=== PATIENT | female | born 1955 | race Caucasian/White ===

== ENCOUNTER → 2021-01-05 10:17 | Outpatient (CLI) | payer MEDICARE, SELFPAY ==
--- NOTE | ~2021-01-05 | XR_ITS ---
XR knee LT 3V 01/05/2021 10:36 Indication: Left knee pain Procedure: 3 views left knee Comparison: No prior studies for comparison. Findings: Moderate tricompartment osteoarthritis. Moderate joint effusion. No acute fracture or traum atic malalignment. No significant soft tissue abnormality. No foreign bodies. Impression: 1: Moderate joint effusion. 2: Moderate osteoarthritis of the left knee. Reviewed, dictated and finalized at location A. Impression: 1: Moderate joint effusion. 2: Moderate osteoarthritis of the left knee.
== END ==
PROVIDERS: PCP Internal Medicine; Visit Provider Internal Medicine
DX: M17.12 Unilateral primary osteoarthritis, left knee (principal)
CPT/HCPCS: 73562

== ENCOUNTER → 2021-02-16 13:54 | Outpatient (CLI) | payer MEDICARE, SELFPAY ==
--- NOTE | ~2021-02-16 | MM_ITS ---
EXAMINATION: MM screening [facility] BI w alexia HISTORY: Screening TECHNIQUE: Craniocaudal and mediolateral oblique 3-D tomosynthesis images were obtained and synthetic 2-D images were generated. CAD analysis was submitted and interpreted. COMPARISON: No prior mammogram is available for comparison at this institution. BREAST PARENCHYMAL COMPOSITION: There are scattered areas of fibroglandular density. FINDINGS: There is asymmetry of the right breast, likely related to prior lumpectomy and radiation th erapy. There are no suspicious masses, calcifications or architectural distortion in the left breast to suggest malignancy. IMPRESSION: 1. Right breast asymmetry in the upper outer quadrant, likely postsurgical. 2. Recommend comparison to previous outside mammograms. BI-RADS Category 0: Incomplete: Needs additional imaging evaluation. Reviewed, dictated and finalized at location A.
== END ==
PROVIDERS: PCP Internal Medicine; Visit Provider Internal Medicine
DX: Z12.31 Encounter for screening mammogram for malignant neoplasm of breast (principal); R92.8 Other abnormal and inconclusive findings on diagnostic imaging of breast
CPT/HCPCS: 77063; 77067

== ENCOUNTER → 2021-08-31 11:59 | Outpatient (CLI) | payer MEDICARE, SELFPAY ==
--- NOTE | ~2021-08-31 | DEXA_ITS ---
Bone Density Report Name: WENDY HANSEN Age: 66 Sex: Female Ethnicity: White Date of : 1955 Indication: postmenopausal; screening for osteoporosis; height loss; Referring Provider: Galo, Luna Study: Bone densitometry was performed. Exam Date: August 31, 2021 Accession number: [id number] Bone Density: Region BMD T-score Z-score Classification AP Spine (L1-L4) 0.824 -2.0 0.0 Osteopenia Femoral Neck (Left) 0.565 -2.6 -0.9 Osteoporosis Total Hip (Left) 0.696 -2.0 -0.6 Osteopenia Femoral Neck (Right) 0.628 -2.0 -0.3 Osteopenia Total Hip (Right) 0.764 -1.5 0.0 Osteopenia Total Hip Mean 0.730 -1.8 -0.3 Osteopenia World Health Organization criteria for BMD impression classify patients as: Normal (T-score at or above -1.0), Osteopenia (T-score between -1.0 and -2.5), or Osteoporosis (T-score at or below -2.5). 10-year Fracture Risk: FRAX not reported because: Some T-score for Spine Total or Hip Total or Femoral Neck at or below -2.5 Clinical Information Provided by Patient: Has used the following medications: Vitamin D, Calcium Patient maximum height was 62 Menopause Age: 51 No regular weight bearing exercise Drinks caffeinated beverages Onset of menses at age 12 Number of children 2 Impression: The patient has osteoporosis, based on the Left Femoral Neck T-score. Discussion: INCREASED RISK OF FRACTURE. BONE DENSITY IS UNDESIRABLY LOW AT ONE OR MORE SKELETAL SITES, CONSISTENT WITH POSTMENOPAUSAL OSTEOPOROSIS. This patient's lowest T-score meets the World Health Organization's (WHO) criteria for osteoporosis at one or more sites (T-score -2.5 or below). In untreated patients, the risk of osteoporotic fracture increases approximately two-fold for each 1.0 SD decrease in T-score. Low bone density is not the only risk factor for fracture; also consider factors such as patient's age, frailty or poor health, risk of falling, risk of injury, previous osteoporotic fracture, family history of osteoporosis, cigarette smoking, low body weight, etc. Not everyone with low bone mineral density has osteoporosis; osteomalacia and other metabolic bone disorders should also be considered. Patients who have osteoporosis should be evaluated for specific diseases and conditions (secondary causes) that may cause or contribute to bone loss. The [place] Association of Clinical Endocrinologists (AACE) and National Osteoporosis Foundation (NOF) recommend pharmacologic intervention for all postmenopausal women whose T-score is in this range. The patient should follow a healthful lifestyle (good nutrition with adequate calcium and vitamin D, and appropriate weight-bearing exercise). Follow-Up: Consider a repeat BMD and Vertebral Fracture Assessment (VFA) exam in 2 years or sooner if medically necessary, to reassess this patient's
== END ==
PROVIDERS: PCP Internal Medicine; Visit Provider Internal Medicine
DX: M81.0 Age-related osteoporosis without current pathological fracture (principal); M85.88 Other specified disorders of bone density and structure, other site; M85.851 Other specified disorders of bone density and structure, right thigh; M85.852 Other specified disorders of bone density and structure, left thigh
CPT/HCPCS: 77080

== ENCOUNTER → 2021-09-08 10:53 | Outpatient (CLI) | payer MEDICARE, SELFPAY ==
--- NOTE | ~2021-09-08 | XR_ITS ---
XR knee LT 3V 09/08/2021 11:15 Indication: Arthritis. Left knee pain. Procedure: 3 views left knee Comparison: 01/05/2021 Findings: There is a large joint effusion. There is moderate tricompartment osteoarthritis. Osteopeni a. No acute fracture or traumatic malalignment. Impression: 1: Moderate tricompartment osteoarthritis of the left knee. 2: Large joint effusion. Reviewed, dictated and finalized at location A. Impression: 1: Moderate tricompartment osteoarthritis of the left knee. 2: Large joint effusion.
== END ==
PROVIDERS: PCP Internal Medicine; Visit Provider Internal Medicine
DX: M17.12 Unilateral primary osteoarthritis, left knee (principal); M25.462 Effusion, left knee
CPT/HCPCS: 73562

== ENCOUNTER → 2022-03-14 13:11 | Outpatient (CLI) | payer MEDICARE, SELFPAY ==
--- NOTE | ~2022-03-14 | MM_ITS ---
EXAMINATION: MM screening dionne BI w alexia HISTORY: Screening mammogram, history of right breast cancer TECHNIQUE: Craniocaudal and mediolateral oblique 3-D tomosynthesis images were obtained and synthetic 2-D images were generated. CAD analysis was submitted and interpreted. COMPARISON: 02/16/2021, 05/31/2019, 05/03/2018 BREAST PARENCHYMAL COMPOSITION: There are scattered areas of fibroglandular density. FINDINGS: There is stable architectural distortion in the upper outer quadrant of the right breast at the site of prior lumpectomy. No suspicious mass, calcification, or architectural distortion are mayela ntified in either breast to suggest malignancy. There has been no suspicious interval change. IMPRESSION: 1. No mammographic evidence of malignancy. 2. Recommend routine screening mammography in one year. BI-RADS Category 2: Benign finding(s). Reviewed, dictated and finalized at location A. CARE ADMINISTRATOR
== END ==
PROVIDERS: PCP Internal Medicine; Visit Provider Internal Medicine
DX: Z12.31 Encounter for screening mammogram for malignant neoplasm of breast (principal)
CPT/HCPCS: 77063; 77067

== ENCOUNTER 2024-06-10 13:44 | Outpatient (CLI) | payer MEDICARE, SELFPAY ==
--- NOTE | ~2024-06-10 | MM_ITS ---
EXAMINATION: MM screening [facility] BI w alexia HISTORY: Screening mammogram TECHNIQUE: Craniocaudal and mediolateral oblique 3-D tomosynthesis images were obtained and synthetic 2-D images were generated. CAD analysis was submitted and interpreted. COMPARISON: 03/14/2022, 02/16/2021, 05/31/2019 BREAST PARENCHYMAL COMPOSITION:Dense: The breasts are heterogeneously dense, which may obscure small masses. FINDINGS: No suspicious mass, calcification, or architectural distortion are identified in either supriya ast to suggest malignancy. There has been no suspicious interval change. IMPRESSION: No mammographic evidence of malignancy. Recommend routine screening mammography in one year. BI-RADS Category 1: Negative Reviewed, dictated and finalized at location . RIBUTION WAREHOUSE MANAGER
== END 2024-06-10 13:45 | disposition home or self-care (01) ==
PROVIDERS: PCP Internal Medicine; Visit Provider Internal Medicine
DX: Z12.31 Encounter for screening mammogram for malignant neoplasm of breast (principal)
CPT/HCPCS: 77063; 77067

== ENCOUNTER 2025-04-13 06:18 | Emergency (ER) | payer MEDICARE, SELFPAY ==
--- NOTE | ~2025-04-13 | XR_ITS ---
Examination: XR ankle LT min 3V Clinical History: pain Comparison: None Technique: 3 views left ankle Findings/impression: 1. Nondisplaced fracture lateral malleolus just below level of ankle mortise. 2. Medial malleolus and ankle mortise intact. Reviewed, dictated and finalized at location R. OL TEACHER
[2025-04-13 06:18] VITALS: BP 144/84; PULSE 80; RESP 18; TEMP 36.7; O2SAT 100
[2025-04-13 06:44] VITALS: BP 128/84; PULSE 94; RESP 16; O2SAT 97
--- NOTE | 2025-04-13 06:54 | PC.NURSE ---
ice pack applied to pt ankle
[2025-04-13 07:14] VITALS: BP 137/75; PULSE 69; RESP 17; O2SAT 96
--- NOTE | 2025-04-13 07:32 | ED.GENADULT ---
HPI - General Adult General Chief complaint: Extremity Injury, Lower Stated complaint: L ankle injury Time Seen by Provider: 04/13/25 06:51 History of Present Illness HPI narrative: 69-year-old female presents to the emergency department for evaluation for left ankle pain. Patient reports she was walking down the steps and missed the last step and did fall to the ground. Patient denies striking head denies any loss of consciousness. Patient reports she was able to bear weight on the ankle immediately after fall. Patient denies any other pain or injury. Patient does have pain and swelling of the left lateral ankle. Related Data Home Medications ?Medication ?Instructions ?Recorded ?Confirmed ?Last Taken ?Type gabapentin 300 mg capsule 300 mg PO TID 10/07/21 10/07/21 Unknown History lisinopril 10 mg tablet 10 mg PO DAILY 10/07/21 10/07/21 Unknown History sertraline 50 mg tablet 50 mg PO DAILY 10/07/21 10/07/21 Unknown History tramadol 50 mg tablet 50 mg PO Q6H PRN 10/07/21 10/07/21 Unknown History Allergies Allergy/AdvReac Type Severity Reaction Status Date / Time Penicillins Allergy Rash Verified 04/13/25 06:23 Sulfa (Sulfonamide Allergy Rash Verified 04/13/25 06:23 Antibiotics) Review of Systems Review of Systems: All systems reviewed & are unremarkable except as noted in HPI and below PMFSH Social History Social History (Updated 10/07/21 @ 11:02 by Christine Hernandez MA) Smoking status: Never smoker Alcohol intake: current Substance use: never Occupation/Education: retired Gender identity (if verbalized by the patient): Female Exam Narrative: APPEARANCE: Well appearing, no pain, no distress, well-nourished. HEAD: normocephalic, atraumatic. EYES: PERRLA/EOMI, conjunctivae clear. NOSE: Normal no drainage NECK: Supple. No adenopathy, no masses. RESPIRATORY: Airway patent, respirations nonlabored. Clear to auscultation bilaterally, no rales, rhonchi, wheezing. CARDIOVASCULAR: Regular rate and rhythm without murmurs rubs or gallops. ABDOMINAL: Soft, nontender, nondistended, normal bowel sounds MUSCULOSKELETAL: Left lateral ankle swelling. NEURO: Alert. Cranial nerves II through XII intact. Grossly intact SKIN: Warm, dry. Normal Color Course Vital Signs Vital signs: Vital Signs Temperature 98.0 F 04/13/25 06:18 Pulse Rate 80 04/13/25 06:18 Respiratory Rate 18 04/13/25 06:18 Blood Pressure 144/84 H 04/13/25 06:18 Pulse Oximetry 100 04/13/25 06:18 Oxygen Delivery Room Air 04/13/25 06:18 Temperature 98.0 F 04/13/25 06:18 Pulse Rate 78 04/13/25 08:50 Respiratory Rate 15 04/13/25 08:50 Blood Pressure 131/97 H 04/13/25 08:50 Pulse Oximetry 96 04/13/25 08:50 Oxygen Delivery Room Air 04/13/25 06:18 MDM MDM Narrative Medical decision making narrative: 69-year-old female presents emergency department for evaluation for left ankle pain. X-ray does show a fracture of the distal fibula fracture. Patient is unable to utilize crutches but patient does have access to a walker and to a knee current. Patient will have close follow-up with Orthopedics. All questions concerns were addressed and patient was updated results of her workup. Differential Diagnosis Differential Diagnosis: Fibula fracture, tibia fracture, ankle sprain Imaging Data My impression: Ankle x-ray: Distal fibular fracture Discharge Plan Discharge Clinical Impression: Ankle fracture, lateral malleolus, closed Patient Disposition: Home Condition: Stable Instructions: Antibiotic Form, Ankle Fracture (DC), Splint Care (ED) Additional Instructions: Splint care as directed. Nonweightbearing on the affected ankle. Close follow-up with Orthopedics. If you require the oxycodone for pain control then hold on your tramadol. Patient Language: Monegasque Prescriptions: New oxycodone-acetaminophen 5-325 mg tablet 1 tablet PO Q6H PRN (Reason: pain) Qty: 14 0RF No Action gabapentin 300 mg capsule 300 mg PO TID Patient Comments: pt states she takes the medication 5x/day lisinopril 10 mg tablet 10 mg PO DAILY tramadol 50 mg tablet 50 mg PO Q6H PRN sertraline 50 mg tablet 50 mg PO DAILY Follow-up/Referrals: Galo,MD Luna [Primary Care Provider, Unknown] Miguel Smith MD [Physician, Orthopedics]
--- OUTSIDE RECORDS SUMMARY | 2025-04-13 07:36 | XMS_ITS | Encounter Summary ---
Author Organization [facility] - [facility] System Address [facility] [place] [address] Care Team Providers Care Spinning Machine Tender Name Role Phone Luna Rosenthal MD Primary Care Provider [phone] Mendy Aguilar DPM Unavailable [phone] Trey Cross MD Unavailable [phone] Encounter Details Date Type Department Care Team (Latest Contact Info) Description 09/19/2024 [email or web address] Message Enc [facility] Medical [facility] Multispecialty Care - [place] [address] [facility] [address] [place] [address] Luna Rosenthal MD [address] [facility] [address] [place] [address] After knee replacement recovery Social History Tobacco Use Types Packs/Day Years Used Date Smoking Tobacco: Never Passive Smoke Exposure: Past Smokeless Tobacco: Never Comments:counseled by Dr Cleo sanchez Alcohol Use Standard Drinks/Week Comments Yes 3.3 (1 standard drink = 0.6 oz p ure alcohol) AUDIT-C Answer Date Recorded Q1: How often do you have a drink containing alc ohol? 2-3 times a week 05/01/2024 Q2: How many drinks containi ng alcohol do you have on a typical day when you are drinking? 1 or 2 05/01/2024 Q3: How often do you have si x or more drinks on one occasion? Never 05/01/2024 PHQ-2 Answer Date Recorded Patient Health Questionnaire-2 Score 0 07/02/2024 Comments No Sex and Gender Information Value Date Recorded Sex Assigned at Female 07/02/2024 9:02 AM CDT Legal Sex Female 12:05 PM CDT Gender Identity Female 04/27/2021 1:24 PM PHARMACOEPIDEMIOLOGIST Sexual Orientation Straight 04/27/2021 1: 24 PM PHARMACOEPIDEMIOLOGIST documented as of this encounter Plan of Treatment Upcoming Encounters Date Type Department Care Team (Late st Contact Info) Description 05/14/2025 9:30 AM PHARMACOEPIDEMIOLOGIST Office Visit [facility] Medical Group Multispecialty [facility] [place] [address] [address] [place] [address] Luna Rosenthal MD [address] [place] [address] documented as of this encounter Visit Diagnoses Not on filedocumented in this encounter Additional Health Concerns Assessment Noted Time PHQ-9 Depression Total Score: 0 07/03/19 25 10:13 AM CDT documented as of this encounter Care Teams Spinning Machine Tender Relationship Specialty Start Date End Date Luna Rosenthal MD [address] [place] [address] PCP - General INTERNAL MEDICINE 11/11/20 Mendy Aguilar DPM [address] [place] [id number] Surgeon Legal Officer - Foot & Ankle Surgery 04/06/22 Trey Cross MD [address] [place] [address] [address] [place] [address] ORTHOPAEDICS 05/01/24 documented as of this encounter
--- OUTSIDE RECORDS SUMMARY | 2025-04-13 07:36 | XMS_ITS | Encounter Summary ---
Author Organization [facility] - [facility] System Address [facility] [place] [address] Care Team Providers Care Senior Product Analyst Name Role Phone Luna Rosenthal MD Primary Care Provider [phone] Mendy Aguilar DPM Unavailable [phone] Trey Cross MD Unavailable [phone] Encounter Details Date Type Department Care Team (Latest Contact Info) Description 03/10/2025 Results Follow-Up [facility] Medical [facility] Mult[facility]pecialty Care - [place] [address] [address] [place] [address] [place] [address] [place] [address] [address] [place] [address] COMPREHENSIVE METABOLIC PANEL, CBC W/DIFF Social History Tobacco Use Types Packs/Day Years [...] Answer Date Recorded Patient Health Questionnaire-2 Score 1 10/23/2024 Comments No Sex and Gender Information Value Date Recorded Sex Assigned at Female 07/02/2024 9:02 AM CDT Legal Sex Female 12:05 PM CDT Gender Identity Female 04/27/2021 1:24 PM TENANT SELECTOR Sexual Orientation Straight 04/27/2021 1: 24 PM TENANT SELECTOR documented as of this encounter Plan of Treatment Upcoming Encounters Date Type Department Care Team (Late st Contact Info) Description 05/14/2025 9:30 AM TENANT SELECTOR Office Visit [facility] Medical Group Multispecialty [facility] [place] [address] [address] [place] [address] Luna Rosenthal MD [address] [place] [address] documented as of this encounter Visit Diagnoses Not on filedocumented in this encounter Additional Health Concerns Assessment Noted Time PHQ-9 Depression Total Score: 2 10/24/19 10:25 AM CDT documented as of this encounter Care Teams Senior Product Analyst Relationship Specialty Start Date End Date Luna Rosenthal MD [address] [place] [address] PCP - General INTERNAL MEDICINE 11/11/20 Mendy Aguilar DPM [address] [place] [address] Surgeon Induction Heating Equipment Setter - Foot & Ankle Surgery 04/06/22 Trey Cross MD [address] [place] [address] [address] [place] [address] ORTHOPAEDICS 05/01/24 documented as of this encounter
--- OUTSIDE RECORDS SUMMARY | 2025-04-13 07:36 | XMS_ITS | Clinical Summary ---
Author Organization [facility] Address [address] [facility] [place] [address] Care Team Providers Care Gas Line Installer Supervisor Name Role Phone Luna Rosenthal MD Primary Care Provider [phone] Source Comments [facility],non-owned Affiliates and Associated Physician Practices is amultiple site organization consisting of ambulatory clinics and hospital sitesin [place], [place], [place] and [place]. This disclosure is being madepursuant to the Care Everywhere program and may not contain all information available regarding this patient. Last updated 18.[facility] Allergies Active Allergy Reactions Criticality Noted Date Comments Penicillins Urticaria,Rash,Unknown Medium 08/04/2015 Can't remember severity Sulfa Antibiotics Rash,Unknown High 08/04/2015 Medications * Be aware that medications may not be up to date on this document. Alwaysverify current medications with the patient. atorvastatin (Lipitor) 20 MG tablet Take 1 (one) tablet by mouth once daily 3 Active gabapentin (Neurontin) 300 MG capsule Take one capsule in the morning and one capsule in the afternoon and two capsules at bedtime. 3 Active lisinopril (Prinivil; Zestril) 10 MG tablet Take 1 (one) tablet by mouth once daily 3 Active traMADol (Ultram) 50 MG tablet Indications: Chronic Pain TAKE 1 TABLET BY MOUTH EVERY MORNING, 1 TABLET EVERY AFTERNOON, AND 2 TABLETS EVERY EVENING FOR CHRONIC PAIN 3 Active Active Problems Problem Noted Date Diagnosed Date Primary osteoarthritis of left knee 04/22/2024 Social History Tobacco Use Types Packs/Day Years Used Date Smoking Tobacco: Never Smokeless Tobacco: Never Tobacco Cessation:Counseling Given: Not Answered PHQ-2 Answer Date Recorded Patient Health Questionnaire-2 Score 0 03/22/2024 Comments Unknown Sex and Gender Information Value Date Recorded Sex Assigned at Not on file Legal Sex Female 9:31 AM CDT Gender Identity Not on file Sexual Orientation Not on file Last Filed Vital Signs Vital Sign Reading Time Taken Comments Blood Pressure - - Pulse - - Temperature - - Respiratory Rate - - Oxygen Saturation - - Inhaled Oxygen Concentration - - Weight 61.2 kg (135 lb) 03/22/2024 8:29 AM COMPENSATION DIRECTOR Height 154.9 cm (5' 1) 03/22/2024 8:29 AM COMPENSATION DIRECTOR Body Mass Index 25.51 03/22/2024 8:29 AM COMPENSATION DIRECTOR Plan of Treatment Health Maintenance Due Date Last Done Comments COLOGUARD (AGES 45-75) - COLON CA SCREENING 1955 COLON MONITORING 1955 COLONOSCOPY - COLON CA SCREENING 1955 CT COLONOGRAPHY - COLON CA SCREENING 1955 Colorectal Cancer Screening 1955 FIT - COLON CA SCREENING 1955 FLEX SIG - COLON CA SCREENING 1955 DTAP/TDAP/TD VACCINES (1 - Tdap) 1972 PNEUMOCOCCAL VACCINE 50+ (1 of 1 - PCV) 2003 ZOSTER VACCINE (1 of 2) 2003 MAMMOGRAM 03/14/2024 03/14/2022, 05/2020, 02/16/2021, Additional history exists SCREENING FOR DIABETES 03/22/2024 DEPRESSION SCREENING 04/17/2024 03/22/2024 MEDICARE AWV CALENDAR YEAR 2024 COVID-19 VACCINE ( season) 2024 03/16/2021, 07/13/2020, 06/15/2020 INFLUENZA VACCINE (#1) 2024 , 01/22/2019, 04/17/2015 Respiratory Syncytial Virus (RSV) Vaccine Pt: or over 60 yrs (1 - 1-dose 75+ series) 2028 HEPATITIS C SCREENING Completed 11/11/2020 BONE DENSITY TESTING Completed 08/31/2021, 05/31/19 20 HEPATITIS B VACCINE Aged Out No longe r eligible based on patient's age to complete this topic HIB VACCINE Aged Out No longer eligi ble based on patient's age to complete this topic HPV VACCINE Aged Out No longer eligi ble based on patient's age to complete this topic MENINGOCOCCAL (Group B) VACCINE SHARED DECISION-MAKING Aged Out No longer eligible based on patient's age to complete this topic MENINGOCOCCAL GROUPS A/C/Y/W VACCINE Aged Out No longer eligible based on patient's age to complete this topic Insurance [facility] MANAGED MEDICARE ADV Care Teams Gas Line Installer Supervisor Relationship Specialty Start Date End Date Luna Rosenthal MD [address] [facility] [address] [place] [address] PCP - General Internal Medicine 03/22/24
--- OUTSIDE RECORDS SUMMARY | 2025-04-13 07:36 | XMS_ITS | Encounter Summary ---
Author Organization [facility] - [facility] Address [facility] [place] [address] Care Team Providers Care Csm Consultant Name Role Phone Luna Rosenthal MD Primary Care Provider [phone] Mendy Aguilar DPM Unavailable [phone] Trey Cross MD Unavailable [phone] Encounter Details Date Type Department Care Team (Late st Contact Info) Description 02/06/2025 [employer] Message Enc [facility] Medical Group Multispecialty Care - [place] [address] [facility] [address] [place] [address] Luna Rosenthal MD [address] [facility] [address] [place] [address] Meds Social History Tobacco Use Types Packs/Day Years [...] CDT Gender Identity Female 04/27/2021 1:24 PM SENIOR ENGINEERING MANAGER Sexual Orientation Straight 04/27/2021 1: 24 PM SENIOR ENGINEERING MANAGER documented as of this encounter Plan of Treatment Upcoming Encounters Date Type Department Care Team (Late st Contact Info) Description 05/14/2025 9:30 AM SENIOR ENGINEERING MANAGER Office Visit [facility] Medical Group Multispecialty [facility] [place] [address] [address] [place] [address] Luna Rosenthal MD [address] [place] [address] documented as of this encounter Visit Diagnoses Not on filedocumented in this encounter Additional Health Concerns Assessment Noted Time PHQ-9 Depression Total Score: 2 10/24/19 25 10:25 AM CDT documented as of this encounter Care Teams Csm Consultant Relationship Specialty Start Date End Date Luna Rosenthal MD [address] [place] [address] PCP - General INTERNAL MEDICINE 11/11/20 Mendy Aguilar DPM [address] [place] [address] Surgeon Butter Production Supervisor - Foot & Ankle Surgery 04/06/22 Trey Cross MD [address] [place] [address] [address] [place] [address] ORTHOPAEDICS 05/01/24 documented as of this encounter
--- OUTSIDE RECORDS SUMMARY | 2025-04-13 07:36 | XMS_ITS | Encounter Summary ---
Author Organization [facility] Address [facility] [place] [address] Care Team Providers Care Dot Compliance Manager Name Role Phone Luna Rosenthal MD Primary Care Provider [phone] Prince Tapia MD Unavailable [phone] Mendy Aguilar DPM Unavailable [phone] Trey Cross MD Unavailable [phone] Encounter Details Date Type Department Care Team (Late st Contact Info) Description 12/03/[address] [facility] Multispecialty Care - [address] [place] [address] [facility], [facility] Provider Nurse Visit Social History Tobacco Use Types Packs/Day Years Used Date Smoking Tobacco: Never Cigarettes Smokeless Tobacco: Never Comments:counseled by Dr Cleo sanchez Alcohol Use Standard Drinks/Week Comments Yes 3.3 (1 standard drink = 0.6 oz p ure alcohol) a few glasses of wine a week PHQ-2 Answer Date Recorded PHQ-2 Score - If the patient scores above 3, please move on to questions 3-9 0 11/08/2021 Comments No Sex and Gender Information Value Date Recorded Sex Assigned at Female 07/02/2024 9:02 AM CDT Legal Sex Female 12:05 PM CDT Gender Identity Female 04/27/2021 1:24 PM NEW AUTOS DELIVERY DRIVER Sexual Orientation Straight 04/27/2021 1: 24 PM NEW AUTOS DELIVERY DRIVER COVID-19 Exposure Response Date Recorded In the last 10 days, have yo u been in contact with someone who was confirmed or suspected to have Coronavirus/COVID-19? No / Unsure 11/16/2021 7:43 AM CDT documented as of this encounter Plan of Treatment Upcoming Encounters Date Type Department Care Team (Late st Contact Info) Description 05/14/2025 9:30 AM NEW AUTOS DELIVERY DRIVER Office Visit [facility] Multispecialty Care - [place] [address] [address] [place] [address] Luna Rosenthal MD [address] [place] [address] documented as of this encounter Visit Diagnoses Not on filedocumented in this encounter Additional Health Concerns Infection Onset Date Last Indicated Resolved Time COVID-19 Rule Out 2022 2022 2022 2:22 PM NEW AUTOS DELIVERY DRIVER COVID-19 Rule Out 2022 2022 04/21/2022 1:49 PM NEW AUTOS DELIVERY DRIVER Assessment Noted Time PHQ-9 Depression Total Score: 9 06/23/19 22 9:17 AM NEW AUTOS DELIVERY DRIVER documented as of this encounter Care Teams Dot Compliance Manager Relationship Specialty Start Date End Date Luna Rosenthal MD [address] [place] [address] PCP - General INTERNAL MEDICINE 11/11/20 Prince Tapia MD [address] [place] [address] ORTHOPAEDIC SURGERY 12/30/20 04/05/22 Mendy Aguilar DPM [address] [place] [address] Surgeon Culinary Art Teacher - Foot & Ankle Surgery 04/06/22 Trey Cross MD [address] [place] [address] [address] [place] [address] ORTHOPAEDICS 05/01/24 documented as of this encounter
--- OUTSIDE RECORDS SUMMARY | 2025-04-13 07:36 | XMS_ITS | Clinical Summary ---
Author Organization [facility] Address [address] [place] [address] Care Team Providers Care Steam Roller Operator Name Role Phone Luna Rosenthal MD Primary Care Provider Mendy Aguilar DPM Unavailable [phone] Trey Cross MD Unavailable [phone] Allergies Active Allergy Reactions Criticality Noted Date Comments Penicillins Hives,Rash,Unknown Low 08/04/2015 Can't remember severity Sulfa Antibiotics Rash,Unknown High 08/04/2015 Sulfacetamide Itching 09/05/2020 Medications * This document contains information received from the source organization and may not represent a complete record from that organization. naloxone (NARCAN) 4 MG/0.1ML nasal sprayIndications: Opioid use 1 spray by Nasal route as needed for Opioid reversal. 2 each 5 023 Active Multiple Vitamin (MULTIVITAMINS OR) Take 1 tablet by mouth daily. [place] Bone Strength multivitamin Active sertraline (ZOLOFT) 25 MG tabletIndications :Moderate episode of recurrent major depressive disorder (CMS/HCC),General ized anxiety disorder Take 1 tablet (25 mg total) by mouth nightly at bedtime. 90 tablet 1 025 Active atorvastatin (LIPITOR) 20 MG tabletIndications :Mixed hyperlipidemia Take 1 tablet (20 mg total) by mouth nightly at bedtime. 90 tablet 1 025 Active lisinopril (PRINIVIL) 10 MG tabletIndications :Essential hypertension, benign Take 1 tablet (10 mg total) by mouth daily. 90 tablet 1 025 Active gabapentin (NEURONTIN) 300 MG capsuleIndication s:Idiopathic progressive polyneuropathy TAKE 1 CAPSULE BY MOUTH EVERY MORNING, TAKE 1 CAPSULE EVERY AFTERNOON, AND 2 CAPSULES EVERY NIGHT AT BEDTIME. 360 capsule 1 025 Active traMADol (ULTRAM) 50 MG tabletIndications :Chronic Pain Indications: Chronic Pain TAKE 1 TABLET BY MOUTH EVERY MORNING, 1 TABLET EVERY AFTERNOON, AND 2 TABLETS EVERY EVENING FOR CHRONIC PAIN 120 tablet 025 Active ALPRAZolam (XANAX) 0.25 MG tabletIndications :Anxiety TAKE 1 TABLET(0.25 MG) BY MOUTH EVERY NIGHT NEEDED FOR SLEEP 30 tablet 025 Active ALPRAZolam (XANAX) 0.25 MG tabletIndications :Anxiety TAKE 1 TABLET(0.25 MG) BY MOUTH EVERY NIGHT NEEDED FOR SLEEP 30 tablet 025 2024 Discontinued Active Problems Problem Noted Date Diagnosed Date Mixed stress and urge urinary incontinence 03/10 Aortic calcification 10/23/2024 Moderate episode of recurrent major depressive d isorder 06/22/2021 Overview (11/08/2021): On sertraline and controlled Anxiety 05/10/2021 Mixed hyperlipidemia 05/10/2021 Essential hypertension, benign 09/05/2020 Overview (11/11/2020): Lisinopril 10 mg daily Denies cough Last Assessment & Plan: Well-controlled on lisinopril 10 mg daily; continue Lisinopril 10 mg daily Denies cough Last Assessment & Plan: Well-controlled on lisinopril 10 mg daily; continue History of breast cancer 09/05/2020 Overview (11/11/2020): 2000 right lumpectomy and XRT followed by 5 years of tamoxifen Last Assessment & Plan: Patient is 19 years from her original diagnosis; VALENTE; next mammogram due May 2020 2000 right lumpectomy and XRT followed by 5 years of tamoxifen Last Assessment & Plan: Patient is 19 years from her original diagnosis; VALENTE; next mammogram due May 2020 Vitamin D deficiency 06/06/2019 Overview (11/11/2020): Ergocalciferol 94437 units weekky x 12 for VitD = 17.4 OTC vit d3 2000 units daily Calcium 1200 mg daily Lab Results Component Value Date VITD 42.9 09/13/2019 Last Assessment & Plan: Vitamin D has been normal on daily supplementation; Check current status with labs, continue medication for now Age-related osteoporosis wit hout current pathological fracture 06/05/2019 Overview (11/11/2020): Dexa 05/31/19- LS -2.1, left fem neck -2.5 06/05/19-Discussed treatment, patient wants to think about options, Vit D ordered Last Assessment & Plan: Currently untreated, patient has been recommended to start pharmacologic therapy Next DEXA due May 2021 Stress incontinence, female 05/02/2017 Primary osteoarthritis of left knee 06/07/2016 Overview (11/11/2020): Getting injections with Dr Mack Small fiber neuropathy 10/12/2015 Overview (11/11/2020): Diagnosed Apr 2006 at [place] through sweat test Has been well controlled on gabapentin and tramadol Last Assessment & Plan: Diagnosed Apr 2006 at [place] through sweat test Has been well controlled on gabapentin and tramadol; continue Idiopathic progressive polyneuropathy 04/29/2013 Resolved Problems Problem Noted Date Diagnosed Date Resolved Date Hypomagnesemia 11/11/2020 11/11/2020 Overview (11/11/2020): Diagnosed through blood work per patient Taking 250 mg daily Last Mg: Magnesium (mg/dL):2.0 (01/10/2019) Last Assessment & Plan: Check current status with labs, continue medication for now Pure hypercholesterolemia 11/11/2020 Overview (11/11/2020): Not on medication-low ASCVD risk Diet and exercise Last Cholesterol: Total Cholesterol (mg/dL):239* (01/10/2019); LDL Cholesterol (mg/dL):149* (01/10/2019); HDL Cholesterol (mg/dL):75 (01/10/2019); Triglycerides (mg/dL):75 (01/10/2019); Non-HDL Cholesterol (mg/dL):164* (01/10/2019) 2019: 10 yr ASCVD risk 7.0% Last Assessment & Plan: Not on medication-low ASCVD risk Vitamin B12 deficiency 11/11/202011/11 Overview (11/11/2020): Diagnosed through blood work, per patient Taking daily supplementation Lab Results Component Value Date [id number] 01/10/2019 Last Assessment & Plan: Recently had a telehealth visit with Dr. Jah Barnett regarding her B12 deficiency and he ordered blood work-up. Will check B12 level with lab today GERD (gastroesophageal reflux disease) 12/29/2015 11/11/2020 Mixed hyperlipidemia 12/29/201511/11/ 021 Anxiety 10/12/2015 11/11/2020 Overview (11/11/2020): With occasional panic during day Also can wake up with lots of thoughts Takes alprazolam 2-3 times per week with good results Last Assessment & Plan: Doing well with taking alprazolam 2-3 times a week as needed without tolerance; continue Encounters Date Type Department Care Team Description 03/20/2025 Vestmarkhart Message Enc [place] [address] [facility] [address] [place] [address] Luna Rosenthal MD Flu and Covid 03/11/2025 Telephone [facility] - [address], [address] [place] [address] Shahid Kim MD Referral 03/10/2025 10:20 AM TESTER OPERATOR Office Visit [place] [address] [place] [address] [address] [place] [address] Luna Rosenthal MD Follow Up (Chronic medical issues); Anxiety; Depression; Hypertension; Osteoporosis (H/o); Breast Cancer (H/o); Hyperlipidemia; Arthritis 03/10/2025 Results Follow-Up [place] [address] [place] [address] [address] [place] [address] Luna Rosenthal MD COMPREHENSIVE METABOLIC PANEL, CBC W/DIFF 03/10/2025 Travel 02/06/2025 Orders Only [place] [address] [facility] [address] [place] [address] Luna Rosenthal MD 02/06/2025 [facility] Message Enc [place] [address] [facility] [address] [place] [address] Luna Rosenthal MD Meds 01/21/2025 4:00 PM CDT Office Visit [place] [address] [place] [address] [address] [place] [address] Luna Rosenthal MD Diarrhea (Blood in stool. Happened Monday night ) 01/21/2025 Travel 01/20/2025 MyChart Message Enc [facility] Medical Group Multispecialty Care - [place] [address] [place] [address] Luna Rosenthal MD tele appointment from Last 3 Months Immunizations Immunization Administration Dates Next Due Fluad influenza vaccine, Donnie drivalent (aIIV4), Inactivated, adjuvanted, preservative free, 0.5 mL,IM use 01/22/2019 Fluzone High Dose - >Age 65 (Prefilled Syringe) 05/03/2023,01/17/2022,02/11/2021 Influenza (Generic) 01/22/2019,04/17/2015 Influenza Adult (Generic) 01/29/2020,04/17/2015 MODERNA COVID-19 (12+) MRNA, LNP-S, PF, 100 MCG/ 0.5 ML DOSE 07/13/2020,06/15/2020 MODERNA COVID-19 (CALL MANAGER PAM ALEA), MRNA, LNP-S, PF, 50 MCG/ 0.25 ML DOSE 03/16/2021 Pneumococcal (Pneumovax 23) 03/26/2020, 0 Pneumococcal (Prevnar 13) 01/03/2019,01/03/2019 Tdap (Adacel) 05/10/2021 Tdap (Generic) 04/17/2011,04/17/2011 Zoster (Zostavax) [address] Unt/0.65Ml 04/17/2014 Family History Medical History Relation Comments Alcohol Abuse Father Early Father Heart Attack Father 60s Hypertension Father Arthritis Mother Heart Disease Mother Relation Status Comments Father Mother Alive Social History Tobacco Use Types Packs/Day Years Used Date Smoking Tobacco: Never Passive Smoke Exposure: Past Smokeless Tobacco: Never Tobacco Cessation:Counseling Given: Yes Comments:counseled by Dr Rosenthal Alcohol Use Standard Drinks/Week Comments Yes 3.3 [...] CDT Gender Identity Female 04/27/2021 1:24 PM TESTER OPERATOR Sexual Orientation Straight 04/27/2021 1: 24 PM TESTER OPERATOR Last Filed Vital Signs Vital Sign Reading Time Taken Comments Blood Pressure 132/77 03/10/2025 10:12 AM TESTER OPERATOR Pulse 68 03/10/2025 10:12 AM TESTER OPERATOR Temperature 36 C (96.8 F) 03/10/2025 10:12 AM TESTER OPERATOR Respiratory Rate 14 03/10/2025 10:12 AM TESTER OPERATOR Oxygen Saturation 97% 03/10/2025 10:12 AM TESTER OPERATOR Inhaled Oxygen Concentration - - Weight 60.8 kg (134 lb) 03/10/2025 10:12 AM TESTER OPERATOR Height 154.9 cm (5' 1) 03/10/2025 10:12 AM TESTER OPERATOR Body Mass Index 25.32 03/10/2025 10:12 AM TESTER OPERATOR Plan of Treatment Upcoming Encounters Date Type Department Care Team (Late st Contact Info) Description 05/14/2025 9:30 AM TESTER OPERATOR Office Visit [facility] Medical Group Multispecialty Care - [place] [address] [address] [place] [address] Luna Rosenthal MD [address] [place] [address] Health Maintenance Due Date Last Done Comments RSV Immunization or 60+ Years (1 - Risk 60-74 years 1-dose series) 2013 Zoster Vaccines (2 of 3) 06/12/2014 04/17/2014 COVID-19 Vaccine ( - season) 2024 03/16/2021, 07/13/2020, 06/15/2020 Annual Medicare Wellness Visit 05/02/2025 05/01/2024 Influenza Adult (#1) 2026 05/03/2023, 01/17/2022, 02/11/2021, Additional history exists Postponed from 01/15/2025 (Patient Refused) Mammogram Screening 06/10/2026 06/10/2024, 03/14/2022, 02/16/2021, Additional history exists Colorectal Cancer Screening Colonoscopy (10 Years) 05/25/2030 05/25/2020 DTaP, Tdap and Td Vaccines (4 - Td or Tdap) 05/10/2031 05/10/2021, 04/17/2011, 04/17/2011 Pneumococcal Vaccine: 50+ Years Completed 03/26/2020, 03/26/2020, 01/03/2019, Additional history exists Hepatitis C Completed 11/11/2020, 11/23/2017 Dexa Scan (General) Completed 08/31/2021, 08/31/2021, 05/31/2019, Additional history exists PHQ-2 (Physician [place]) Completed 10/23/2024 Hepatitis A Vaccines Aged Out No long er eligible based on patient's age to complete this topic Meningococcal B Vaccine Aged Out No l onger eligible based on patient's age to complete this topic Meningococcal Vaccine Aged Out No torito jacques eligible based on patient's age to complete this topic RSV Immunizations Under 20 Months Aged Out No longer eligible based on patient's age to complete this topic Procedures Procedure Name Priority Date/Time Associated Diagnosis Comments CBC W/DIFF AUTOMATED Routine 03/10/2025 10:46 AM TESTER OPERATOR Drug therapy COMPREHENSIVE METABOLIC PANEL Routine 03/10/2025 10:46 AM TESTER OPERATOR Drug therapy COLLECTION VENOUS BLOOD VENIPUNCTURE Routine 03/10/2025 10:30 AM TESTER OPERATOR Drug therapy MAMMOGRAM GENERIC (SCAN ORDER) 06/10/2024 BONE DENSITY GENERIC (SCAN ORDER) 08/31/2021 HEPATITIS C ANTIBODY Routine 11/11/2020 9:39 AM CDT Encounter to establish care Encounter for general health examination Encounter for hepatitis C screening test for low risk patient COLONOSCOPY GENERIC (SCAN ORDER) 05/25/2020 from Last 3 Months or Most Recently Relevant to Health Maintenance Results * (ABNORMAL) COMPREHENSIVE METABOLIC PANEL (03/10/2025 10:46 AM TESTER OPERATOR) [facility] SODIUM S/P/B 137 136 - 145 MMOL/L 03/10/2025 4:46 PM TESTER OPERATOR [facility] [place] POTASSIUM S/P/B 4.6 3.5 - 5.1 MMOL/L 03/10/2025 4:46 PM [facility] CHLORIDE S/P/B 101 98 - 107 MMOL/L 03/10/2025 4:46 PM [facility] [place] CO2 25.6 21 - 32 MMOL/L 03/10/2025 4:46 PM [facility] GLUCOSE 84 70 - 99 MG/DL 03/10/2025 4:46 PM [facility] BUN 20(H) 7 - 18 MG/DL 03/10/2025 4:46 PM [facility] CREATININE S/P/B 0.74 0.55 - 1.02 MG/DL 03/10/2025 4:46 PM [facility] [place] CALCIUM S/P/B 8.7 8.4 - 10.5 MG/DL 03/10/2025 4:46 PM [facility] BILIRUBIN TOTAL S/P/B 0.3 0.2 - 1.0 MG/DL 03/10/2025 4:46 PM [facility] [place] ALKALINE PHOSPHATASE S/P/B 80 55 - 142 U/L 03/10/2025 4:46 PM [facility] AST 23 15 - 37 U/L 03/10/2025 4:46 PM TESTER OPERATOR [facility] [place] ALT 24 14 - 59 U/L 03/10/2025 4:46 PM [facility] [place] TOTAL PROTEIN S/P/B 6.7 6.4 - 8.2 G/DL 03/10/2025 4:46 PM TESTER OPERATOR [facility] ALBUMIN S/P/B 3.9 3.4 - 5.0 G/DL 03/10/2025 4:46 PM TESTER OPERATOR [facility] [place] ANION GAP 10.4 5 - 15 MMOL/L 03/10/2025 4:46 PM TESTER OPERATOR [facility] [place] Comment:REFERENCE RANGE NOT ESTABLISHED OSMOLALITY (CALC) 286 MOSM/KG 025 4:46 PM TESTER OPERATOR [facility] [place] Comment:REFERENCE RANGE NOT ESTABLISHED GFR ESTIMATE 86(L) >90 ML/MIN/1. 73 M2 03/10/2025 4:46 PM TESTER OPERATOR [facility] [place] GFR NOTES GFR REFERENCE S: 03/10/2025 4:46 PM TESTER OPERATOR [facility] [place] Comment: THE ESTIMATED GFR IS CALCULATED USING THE 2020 CKD-EPI EQUATION. THE FOLLOWING CATEGORIES FOR GRADING RENAL FUNCTION ARE RECOMMENDED BY THE INTERNATIONAL SOCIETY OF NEPHROLOGY (KDIGO 2012 CLINICAL PRACTICE GUIDELINE). G1,NORMAL OR HIGH: >89 ml/min/1.73 m2 G2,MILDLY DECREASED: 60-89 ml/min/1.73 m2 G3A,MILDLY TO MODERATELY DECREASED: 45-59 ml/min/1.73 m2 G3B,MODERATELY TO SEVERELY DECREASED: 30-44 ml/min/1.73 m2 G4,SEVERELY DECREASED: 15-29 ml/min/1.73 m2 G5,KIDNEY FAILURE: <15 ml/min/1.73 m2 BLOOD VENOUS BLOOD SPECIMEN / Unknown 03/10/2025 10:46 AM TESTER OPERATOR us Luna Rosenthal MD LABORATORY Final Result [facility] [place] [address] [place] [address], * (ABNORMAL) CBC W/DIFF (03/10/2025 10:46 AM TESTER OPERATOR) WBC 4.28 4.00 - 10.80 x10'3/uL 03/10/2025 4:24 PM [facility] RBC 4.07(L) 4.10 - 5.40 x10'6/uL 03/10/2025 4:24 PM [facility] HGB 12.7 12.0 - 16.0 G/DL 03/10/2025 4:24 PM [facility] HCT 38.5 36.0 - 47.0 % 03/10/2025 4:24 PM [facility] MCV 94.6 78.0 - 100.0 FL 03/10/2025 4:24 PM [facility] MCH 31.2(H) 27.0 - 31.0 PG 03/10/2025 4:24 PM [facility] MCHC 33.0 33.0 - 36.0 G/DL 03/10/2025 4:24 PM [facility] RDW 13.0 11.5 - 14.5 % 03/10/2025 4:24 PM [facility] PLT 268 150 - 350 x10'3/uL 03/10/2025 4:24 PM [facility] MPV 10.1 7.4 - 10.4 FL 03/10/2025 4:24 PM [facility] DIFFERENTIAL TYPE AUTOMATED DIFFERENTIAL 03/10/2025 4:24 PM [facility] NEUTROPHILS % 52.6 % 03/10/2025 4:24 PM [facility] LYMPHOCYTES % 32.0 % 03/10/2025 4:24 PM TESTER OPERATOR [facility] MONOCYTES % 12.4 % 03/10/2025 4:24 PM [facility] EOSINOPHILS % 2.1 % 03/10/2025 4:24 PM [facility] BASOPHILS % 0.9 % 03/10/2025 4:24 PM [facility] IMMATURE GRANS % 0.0 % 03/10/2025 4:24 PM TESTER OPERATOR [facility] ABS. NEUTROPHILS 2.25 1.60 - 8.30 x10'3/uL 03/10/2025 4:24 PM TESTER OPERATOR [facility] ABS. LYMPHOCYTES 1.37 0.80 - 4.70 x10'3/uL 03/10/2025 4:24 PM TESTER OPERATOR [facility] ABS. MONOCYTES 0.53 0.00 - 1.50 x10'3/uL 03/10/2025 4:24 PM TESTER OPERATOR [facility] ABS. EOSINOPHILS 0.09 0.00 - 0.40 x10'3/uL 03/10/2025 4:24 PM TESTER OPERATOR [facility] ABS. BASOPHILS 0.04 0.00 - 0.20 x10'3/uL 03/10/2025 4:24 PM [facility] ABS. IMMATURE GRANULOCYTES 0.00 0.00 - 0.03 x10'3/uL 03/10/2025 4:24 PM TESTER OPERATOR [facility] BLOOD VENOUS BLOOD SPECIMEN / Unknown 03/10/2025 10:46 AM TESTER OPERATOR Luna Rosenthal MD LABORATORY Final Result [facility] [address] [place] [address], * MAMMOGRAM GENERIC (SCAN ORDER) (06/10/2024) Anatomical Region Laterality Modality Other 06/10/2024 [facility] Scanned SCANNING Final Resu lt * BONE DENSITY GENERIC (08/31/2021) Anatomical Region Laterality Modality Other 08/31/2021 Narrative 08/31/2021 Ordered by an unspecified provider. us Documents Scanned SCANNING Final Result * HEPATITIS C ANTIBODY (11/11/2020 9:39 AM CDT) HEPATITIS C AB NON-REACTI VE NON-REACT DOROTEO 11/11/2020 9:03 PM CDT [facility] Comment: ANTIBODIES TO HCV NOT DETECTED. DOES NOT EXCLUDE THE POSSIBILITY OF EXPOSURE TO HCV. 11/11/2020 9:39 AM CDT Luna Rosenthal MD LABORATORY Final Result [facility] [address] [place] [address], [id number] * COLONOSCOPY GENERIC (05/25/2020) 05/25/2020 Narrative 05/25/2020 Ordered by an unspecified provider. us Documents Scanned SCANNING Final Result from Last 3 Months or Most Recently Relevant to Health Maintenance Insurance [facility] [place] [address] Advance Directives Documents on File Type Date Recorded Patient Tung Nut Grower Expl anation Power of Campus Police Officer 07/03/2024 6:02 AM POA H C Advance Directives and Livin g Will 07/03/2024 5:57 AM [place] Care Teams Steam Roller Operator Relationship Specialty Start Date End Date Luna Rosenthal MD [address] [address] PCP - General INTERNAL MEDICINE 11/11/20 Mendy Aguilar DPM [address] [address] Surgeon Sales Agent Food Vending Service - Foot & Ankle Surgery 04/06/22 Trey Cross MD [address] [place] [address] ORTHOPAEDICS 05/01/24
--- OUTSIDE RECORDS SUMMARY | 2025-04-13 07:36 | XMS_ITS | Encounter Summary ---
Author Organization [facility] - [facility] Address [facility]ly [facility] [place] [address] Care Team Providers Care Therapy Site Coordinator Name Role Phone Luna Rosenthal MD Primary Care Provider Prince Tapia MD Unavailable [phone] Mendy Aguilar DPM Unavailable [phone] Trey Cross MD Unavailable [phone] Encounter Details Date Type Department Care Team (Latest Contact Info) Description 09/07/2021 HouseFixt Message Enc [facility] Medical Group Multispecialty Care - [place] [address] [place] [address] [address] [place] [address] Luna Rosenthal MD [address] [facility] [address] [place] [address] bone scan results Social History Tobacco Use Types Packs/Day Years Used Date Smoking Tobacco: Never Cigarettes Smokeless Tobacco: Never Comments:counseled by Dr Cleo sanchez Alcohol Use Standard Drinks/Week Comments Yes 3.3 (1 standard drink = 0.6 oz p ure alcohol) a few glasses of wine a week PHQ-2 Answer Date Recorded PHQ-2 Score - If the patient scores above 3, please move on to questions 3-9 2 06/22/2021 Comments No Sex and Gender Information Value Date Recorded Sex Assigned at Female 07/02/2024 9:02 AM CDT Legal Sex Female 12:05 PM CDT Gender Identity Female 04/27/2021 1:24 PM INTELLIGENCE SENIOR SERGEANT Sexual Orientation Straight 04/27/2021 1: 24 PM INTELLIGENCE SENIOR SERGEANT COVID-19 Exposure Response Date Recorded In the last 10 days, have yo u been in contact with someone who was confirmed or suspected to have Coronavirus/COVID-19? No / Unsure 09/02/2021 8:05 AM CDT documented as of this encounter Plan of Treatment Upcoming Encounters Date Type Department Care Team (Late st Contact Info) Description 05/14/2025 9:30 AM INTELLIGENCE SENIOR SERGEANT Office Visit [facility] Medical Group Multispecialty Care [place] [address] [address] [place] [address] Luna Rosenthal MD [address] [place] [address] documented as of this encounter Visit Diagnoses Not on filedocumented in this encounter Additional Health Concerns Infection Onset Date Last Indicated Resolved Time COVID-19 Rule Out 2022 2022 2022 2:22 PM INTELLIGENCE SENIOR SERGEANT COVID-19 Rule Out 2022 2022 04/21/2022 1:49 PM INTELLIGENCE SENIOR SERGEANT Assessment Noted Time PHQ-9 Depression Total Score: 9 06/23/19 9:17 AM INTELLIGENCE SENIOR SERGEANT documented as of this encounter Care Teams Therapy Site Coordinator Relationship Specialty Start Date End Date Luna Rosenthal MD [address] [place] [address] PCP - General INTERNAL MEDICINE 11/11/20 Prince Tapia MD [address] [place] [address] ORTHOPAEDIC SURGERY 12/30/20 04/05/22 Mendy Aguilar DPM [address] [place] [address] Surgeon Formstone Fitter - Foot & Ankle Surgery 04/06/22 Trey Cross MD [address] [place] [address] [address] [place] [address] ORTHOPAEDICS 05/01/24 documented as of this encounter
--- OUTSIDE RECORDS SUMMARY | 2025-04-13 07:36 | XMS_ITS | Encounter Summary ---
Author Organization [facility] - [facility] Address Formerly [facility] [place] [address] Care Team Providers Care Protein Specialist Name Role Phone Luna Rosenthal MD Primary Care Provider [phone] Mendy Aguilar DPM Unavailable Trey Cross MD Unavailable [phone] Encounter Details Date Type Department Care Team (Late st Contact Info) Description 03/20/2025 Alim Innovationst Message Enc [facility] Medical Group Multispecialty Care - [place] 118[address] [facility] [address] [place] [address] Luna Rosenthal MD [address] [facility] 157 [place] [address] Flu and Covid Social History Tobacco Use Types Packs/Day Years [...] CDT Gender Identity Female 04/27/2021 1:24 PM BATT PACKER Sexual Orientation Straight 04/27/2021 1: 24 PM BATT PACKER documented as of this encounter Plan of Treatment Upcoming Encounters Date Type Department Care Team (Late st Contact Info) Description 05/14/2025 9:30 AM BATT PACKER Office Visit [facility] Medical Group Multispecialty Care - [place] [address] [address] [place] [address] Luna Rosenthal MD [address] [place] [address] documented as of this encounter Visit Diagnoses Not on filedocumented in this encounter Additional Health Concerns Assessment Noted Time PHQ-9 Depression Total Score: 2 10/24/19 25 10:25 AM CDT documented as of this encounter Care Teams Protein Specialist Relationship Specialty Start Date End Date Luna Rosenthal MD [address] [place] [address] PCP - General INTERNAL MEDICINE 11/11/20 Mendy Aguilar DPM [address] [place] [address] Surgeon Senior Director Of Strategy - Foot & Ankle Surgery 04/06/22 Trey Cross MD [address] [place] [address] [address] [place] [address] ORTHOPAEDICS 05/01/24 documented as of this encounter
--- OUTSIDE RECORDS SUMMARY | 2025-04-13 07:36 | XMS_ITS | Clinical Summary ---
Author Organization [facility] Address 1 [facility] [place] [address] Care Team Providers Care Press Set Up Person Name Role Phone No, Pcp TIRE MOLDER Primary Care Provider Unavailabl e Allergies Active Allergy Reactions Criticality Noted Date Comments Penicillins Rash Low 09/29/2017 Sulfa (Sulfonamide Antibiotics) Rash Low 09/15 Medications gabapentin (NEURONTIN) 300 MG capsule 06/27/2017 Active lisinopril (PRINIVIL,ZESTRIL) 10 MG tablet 07/11/2017 Active traMADol (ULTRAM) 50 mg tablet 07/31/2017 Active alprazolam (XANAX) 0.25 MG tablet 06/28/2017 Acti ve Social History Tobacco Use Types Packs/Day Years Used Date Smoking Tobacco: Never Smokeless Tobacco: Never Comments No Sex and Gender Information Value Date Recorded Sex Assigned at Not on file Legal Sex Female 12:40 PM EDT Gender Identity Not on file Sexual Orientation Not on file Last Filed Vital Signs Vital Sign Reading Time Taken Comments Blood Pressure 130/86 09/29/2017 12:02 PM CDT Pulse 61 09/29/2017 11:50 AM CDT Temperature 36.9 C (98.4 F) 09/29/2017 11:50 AM CDT Respiratory Rate 16 09/29/2017 11:50 AM CDT Oxygen Saturation 98% 09/29/2017 11:50 AM CDT Inhaled Oxygen Concentration - - Weight 61.2 kg (135 lb) 09/29/2017 11:50 AM CDT Height 157.5 cm (5' 2) 09/29/2017 11:50 AM CDT Body Mass Index 24.69 09/29/2017 11:50 AM CDT Plan of Treatment Not on file Medical Devices Not on file Insurance [employer] Care Teams Press Set Up Person Relationship Specialty Start Date End Date No, Pcp, TIRE MOLDER N/A Do not use PCP - General 01/15/20
--- OUTSIDE RECORDS SUMMARY | 2025-04-13 07:36 | XMS_ITS | Encounter Summary ---
Author Organization [facility] - [facility] Address Critical access hospital[address] [place] [address] Care Team Providers Care Vocational Rehabilitation Administrator Name Role Phone Luna Rosenthal MD Primary Care Provider [phone] Mendy Aguilar DPM Unavailable [phone] Trey Cross MD Unavailable [phone] Encounter Details Date Type Department Care Team (Late st Contact Info) Description 12/20/2024 COM DEVt Message Enc [facility] Medical Group Multispecialty Care - [place] 118[address] [facility] [address] [place] [address] Luna Rosenthal MD 1188 [facility] 157 [place] [address] Tramadol Social History Tobacco Use Types Packs/Day Years [...] CDT Gender Identity Female 04/27/2021 1:24 PM BANQUET CAPTAIN Sexual Orientation Straight 04/27/2021 1: 24 PM BANQUET CAPTAIN documented as of this encounter Plan of Treatment Upcoming Encounters Date Type Department Care Team (Late st Contact Info) Description 05/14/2025 9:30 AM BANQUET CAPTAIN Office Visit [facility] Medical Group Multispecialty [facility] - [place] [address] [address] [place] [address] Luna Rosenthal MD [address] [place] [address] documented as of this encounter Visit Diagnoses Not on filedocumented in this encounter Additional Health Concerns Assessment Noted Time PHQ-9 Depression Total Score: 2 10/24/19 25 10:25 AM CDT documented as of this encounter Care Teams Vocational Rehabilitation Administrator Relationship Specialty Start Date End Date Luna Rosenthal MD [address] [place] [address] PCP - General INTERNAL MEDICINE 11/11/20 Mendy Aguilar DPM [address] [place] [address] Surgeon Computer Mechanic - Foot & Ankle Surgery 04/06/22 Trey Cross MD [address] [place] [address] [address] [place] [address] ORTHOPAEDICS 05/01/24 documented as of this encounter
--- OUTSIDE RECORDS SUMMARY | 2025-04-13 07:36 | XMS_ITS | Encounter Summary ---
Author Organization [facility] - [facility] Address [facility] [place] [address] Care Team Providers Care Hookman Name Role Phone Luna Rosenthal MD Primary Care Provider Prince Tapia MD Unavailable [phone] Mendy Aguilar DPM Unavailable [phone] Trey Cross MD Unavailable [phone] Encounter Details Date Type Department Care Team (Late st Contact Info) Description 01/11/2022 MyChart Message Enc [facility] Medical Group Multispecialty Care - [place] [address] [place] [address] [address] [place] [address] Luna Rosenthal MD [address] [facility] [address] [place] [address] Tramadol Social History Tobacco Use [...] CDT Gender Identity Female 04/27/2021 1:[address] TECH Sexual Orientation Straight 04/27/2021 1: [address] TECH documented as of this encounter Plan of Treatment Upcoming Encounters Date Type Department Care Team (Late st Contact Info) Description 05/14/2025 9:[address] TECH Office Visit [facility] Medical Group Multispecialty Care - [place] [address] [address] [place] [address] Luna Rosenthal MD [address] [place] [address] documented as of this encounter Visit Diagnoses Not on filedocumented in this encounter Additional Health Concerns Infection Onset Date Last Indicated Resolved Time COVID-19 Rule Out 2022 2022 2022 2:[address] TECH COVID-19 Rule Out 2022 2022 04/21/2022 1:[address] TECH Assessment Noted Time PHQ-9 Depression Total Score: 9 06/23/19 9:[address] TECH documented as of this encounter Care Teams Hookman Relationship Specialty Start Date End Date Luna Rosenthal MD [address] [place] [address] PCP - General INTERNAL MEDICINE 11/11/20 Prince Tapia MD [address] [place] [address] ORTHOPAEDIC SURGERY 12/30/20 04/05/22 Mendy Aguilar DPM [address] [place] [address] Surgeon Director Of Philanthropy - Foot & Ankle Surgery 04/06/22 Trey Cross MD [address] [place] [address] [address] [place] [address] ORTHOPAEDICS 05/01/24 documented as of this encounter
--- OUTSIDE RECORDS SUMMARY | 2025-04-13 07:36 | XMS_ITS | Encounter Summary ---
Author Organization [facility] - [facility] Address [facility] [place] [address] Care Team Providers Care Customer Service Advocate Name Role Phone Luna Rosenthal MD Primary Care Provider Prince Tapia MD Unavailable [phone] Mendy Aguilar DPM Unavailable [phone] Trey Cross MD Unavailable [phone] Encounter Details Date Type Department Care Team (Latest Contact Info) Description 09/02/2021 Rodin Therapeuticst Message Enc [facility] Medical Group Multispecialty Care - [place] [address] [place] [address] 157 [address] [place] [address] Luna Rosenthal MD 1188 [facility] 157 [place] [address] Next Step Foot and Ankle Social History Tobacco Use Types Packs/Day Years [...] CDT Gender Identity Female 04/27/2021 1:24 PM BLENDING COORDINATOR Sexual Orientation Straight 04/27/2021 1: 24 PM BLENDING COORDINATOR COVID-19 Exposure Response Date Recorded In the last 10 days, have yo u been in contact with someone who was confirmed or suspected to have Coronavirus/COVID-19? No / Unsure 09/02/2021 8:05 AM CDT documented as of this encounter Plan of Treatment Upcoming Encounters Date Type Department Care Team (Late st Contact Info) Description 05/14/2025 9:30 AM BLENDING COORDINATOR Office Visit [facility] Medical Group Multispecialty Care - [place] [address] [address] [place] [address] Luna Rosenthal MD [address] [place] [address] documented as of this encounter Visit Diagnoses Not on filedocumented in this encounter Additional Health Concerns Infection Onset Date Last Indicated Resolved Time COVID-19 Rule Out 2022 2022 2022 2:22 PM BLENDING COORDINATOR COVID-19 Rule Out 2022 2022 04/21/2022 1:49 PM BLENDING COORDINATOR Assessment Noted Time PHQ-9 Depression Total Score: 9 06/23/19 22 9:17 AM BLENDING COORDINATOR documented as of this encounter Care Teams Customer Service Advocate Relationship Specialty Start Date End Date Luna Rosenthal MD [address] [place] [address] PCP - General INTERNAL MEDICINE 11/11/20 Prince Tapia MD [address] [place] [address] ORTHOPAEDIC SURGERY 12/30/20 04/05/22 Mendy Aguilar DPM [address] [place] [address] Surgeon Loading Manager - Foot & Ankle Surgery 04/06/22 Trey Cross MD [address] [place] [address] [address] [address] ORTHOPAEDICS 05/01/24 documented as of this encounter
--- OUTSIDE RECORDS SUMMARY | 2025-04-13 07:36 | XMS_ITS | Encounter Summary ---
Author Organization [facility] - [facility] Address Critical access hospital6 [place] [address] Care Team Providers Care Powered Bridge Specialist Name Role Phone Luna Rosenthal MD Primary Care Provider [phone] Mendy Aguilar DPM Unavailable Trey Cross MD Unavailable [phone] Encounter Details Date Type Department Care Team (Late st Contact Info) Description 01/02/2025 Beyond Credentialst Message Enc [facility] Medical Group Multispecialty Care - [place] 118[address] [facility] [address] [place] [address] Luna Rosenthal MD 118[address] [facility] [address] [place] [address] Alprazolam Social History Tobacco Use Types Packs/Day Years [...] CDT Gender Identity Female 04/27/2021 1:24 PM LAB TECH Sexual Orientation Straight 04/27/2021 1: 24 PM LAB TECH documented as of this encounter Plan of Treatment Upcoming Encounters Date Type Department Care Team (Late st Contact Info) Description 05/14/2025 9:30 AM LAB TECH Office Visit [facility] Medical Group Multispecialty Care - [place] [address] [address] [place] [address] Luna Rosenthal MD [address] [place] [address] documented as of this encounter Visit Diagnoses Not on filedocumented in this encounter Additional Health Concerns Assessment Noted Time PHQ-9 Depression Total Score: 2 10/24/19 25 10:25 AM CDT documented as of this encounter Care Teams Powered Bridge Specialist Relationship Specialty Start Date End Date Luna Rosenthal MD [address] [place] [address] PCP - General INTERNAL MEDICINE 11/11/20 Mendy Aguilar DPM [address] [place] [address] Surgeon Line Servicer - Foot & Ankle Surgery 04/06/22 Trey Cross MD [address] [place] [address] [address] [place] [address] ORTHOPAEDICS 05/01/24 documented as of this encounter
--- OUTSIDE RECORDS SUMMARY | 2025-04-13 07:36 | XMS_ITS | Encounter Summary ---
Author Organization [facility] - [facility] Address [facility]6 [place] [address] Care Team Providers Care Pearl Digger Name Role Phone Luna Rosenthal MD Primary Care Provider [phone] Prince Tapia MD Unavailable [phone] Mendy Aguilar DPM Unavailable [phone] Trey Cross MD Unavailable [phone] Encounter Details Date Type Department Care Team (Late st Contact Info) Description 10/07/2021 MyChart Message Enc [facility] Medical Group Multispecialty Care - [place] [address] [place] [address] [address] [place] [address] Luna Rosenthal MD [address] [facility] [address] [place] [address] Sertraline Social History Tobacco Use Types Packs/Day Years [...] CDT Gender Identity Female 04/27/2021 1:24 PM SOCIAL WORK SUPERVISOR Sexual Orientation Straight 04/27/2021 1: 24 PM SOCIAL WORK SUPERVISOR documented as of this encounter Plan of Treatment Upcoming Encounters Date Type Department Care Team (Late st Contact Info) Description 05/14/2025 9:30 AM SOCIAL WORK SUPERVISOR Office Visit [facility] Medical Group Multispecialty Care - [place] [address] [address] [place] [address] Luna Rosenthal MD [address] [place] [address] documented as of this encounter Visit Diagnoses Not on filedocumented in this encounter Additional Health Concerns Infection Onset Date Last Indicated Resolved Time COVID-19 Rule Out 2022 2022 2022 2:22 PM SOCIAL WORK SUPERVISOR COVID-19 Rule Out 2022 2022 04/21/2022 1:49 PM SOCIAL WORK SUPERVISOR Assessment Noted Time PHQ-9 Depression Total Score: 9 06/23/19 9:17 AM SOCIAL WORK SUPERVISOR documented as of this encounter Care Teams Pearl Digger Relationship Specialty Start Date End Date Luna Rosenthal MD [address] [place] [address] PCP - General INTERNAL MEDICINE 11/11/20 Prince Tapia MD [address] [place] [address] ORTHOPAEDIC SURGERY 12/30/20 04/05/22 Mendy Aguilar DPM [address] [place] [address] Surgeon Web Search Evaluator - Foot & Ankle Surgery 04/06/22 Trey Cross MD [address] [place] [address] [address] [place] [address] ORTHOPAEDICS 05/01/24 documented as of this encounter
--- OUTSIDE RECORDS SUMMARY | 2025-04-13 07:36 | XMS_ITS | Encounter Summary ---
Author Organization [facility] - [facility] Address [facility] [place] [address] Care Team Providers Care Group Insurance Specialist Name Role Phone Luna Rosenthal MD Primary Care Provider Prince Tapia MD Unavailable [phone] Mendy Aguilar DPM Unavailable [phone] Trey Cross MD Unavailable [phone] Encounter Details Date Type Department Care Team (Late st Contact Info) Description 09/07/2021 Caspidahart Message Enc [facility] Medical Group Multispecialty Care - [place] [address] [place] [address] [address] [place] [address] Luna Rosenthal MD [address] [facility] [address] [place] [address] Left knee exray Social History Tobacco Use Types Packs/Day Years [...] CDT Gender Identity Female 04/27/2021 1:24 PM PRESS BOX CUSTODIAN Sexual Orientation Straight 04/27/2021 1: 24 PM PRESS BOX CUSTODIAN COVID-19 Exposure Response Date Recorded In the last 10 days, have yo u been in contact with someone who was confirmed or suspected to have Coronavirus/COVID-19? No / Unsure 09/02/2021 8:05 AM CDT documented as of this encounter Plan of Treatment Upcoming Encounters Date Type Department Care Team (Late st Contact Info) Description 05/14/2025 9:30 AM PRESS BOX CUSTODIAN Office Visit [facility] Medical Group Multispecialty Care - [place] [address] [address] [place] [address] Luna Rosenthal MD [address] [place] [address] documented as of this encounter Visit Diagnoses Not on filedocumented in this encounter Additional Health Concerns Infection Onset Date Last Indicated Resolved Time COVID-19 Rule Out 2022 2022 2022 2:22 PM PRESS BOX CUSTODIAN COVID-19 Rule Out 2022 2022 04/21/2022 1:49 PM PRESS BOX CUSTODIAN Assessment Noted Time PHQ-9 Depression Total Score: 9 06/23/19 22 9:17 AM PRESS BOX CUSTODIAN documented as of this encounter Care Teams Group Insurance Specialist Relationship Specialty Start Date End Date Luna Rosenthal MD [address] [place] [address] PCP - General INTERNAL MEDICINE 11/11/20 Prince Tapia MD [address] [place] [address] ORTHOPAEDIC SURGERY 12/30/20 04/05/22 Mendy Aguilar DPM [address] [place] [address] Surgeon Maker Up Folding - Foot & Ankle Surgery 04/06/22 Trey Cross MD [address] [place] [address] [address] [address] ORTHOPAEDICS 05/01/24 documented as of this encounter
--- OUTSIDE RECORDS SUMMARY | 2025-04-13 07:36 | XMS_ITS | Encounter Summary ---
Author Organization [facility] - [facility] Address [facility]6 [place] [address] Care Team Providers Care Packaging Engineer Name Role Phone Luna Rosenthal MD Primary Care Provider [phone] Prince Tapia MD Unavailable [phone] Mendy Aguilar DPM Unavailable [phone] Trey Cross MD Unavailable [phone] Encounter Details Date Type Department Care Team (Latest Contact Info) Description 09/03/2021 Garden Matet Message Enc [facility] Medical Group Multispecialty Care - [place] [address] [place] [address] [address] [place] [address] Luna Rosenthal MD 118[address] [facility] [address] [place] [address] Bone Density Test Social History Tobacco Use Types Packs/Day Years [...] CDT Gender Identity Female 04/27/2021 1:24 PM TECHNICAL SALES CONSULTANT Sexual Orientation Straight 04/27/2021 1: 24 PM TECHNICAL SALES CONSULTANT COVID-19 Exposure Response Date Recorded In the last 10 days, have yo u been in contact with someone who was confirmed or suspected to have Coronavirus/COVID-19? No / Unsure 09/02/2021 8:05 AM CDT documented as of this encounter Plan of Treatment Upcoming Encounters Date Type Department Care Team (Late st Contact Info) Description 05/14/2025 9:30 AM TECHNICAL SALES CONSULTANT Office Visit [facility] Medical Group Multispecialty Care - [place] [address] [address] [place] [address] Luna Rosenthal MD [address] [place] [address] documented as of this encounter Visit Diagnoses Not on filedocumented in this encounter Additional Health Concerns Infection Onset Date Last Indicated Resolved Time COVID-19 Rule Out 2022 2022 2022 2:22 PM TECHNICAL SALES CONSULTANT COVID-19 Rule Out 2022 2022 04/21/2022 1:49 PM TECHNICAL SALES CONSULTANT Assessment Noted Time PHQ-9 Depression Total Score: 9 06/23/19 9:17 AM TECHNICAL SALES CONSULTANT documented as of this encounter Care Teams Packaging Engineer Relationship Specialty Start Date End Date Luna Rosenthal MD [address] [place] [address] PCP - General INTERNAL MEDICINE 11/11/20 Prince Tapia MD [address] [place] [address] ORTHOPAEDIC SURGERY 12/30/20 04/05/22 Mendy Aguilar DPM [address] [place] [address] Surgeon Consumer Marketing Analyst - Foot & Ankle Surgery 04/06/22 Trey Cross MD [address] [place] [address] [address] [place] [address] ORTHOPAEDICS 05/01/24 documented as of this encounter
--- OUTSIDE RECORDS SUMMARY | 2025-04-13 07:37 | XMS_ITS | Encounter Summary ---
Author Organization [facility] Address [facility] [place] [address] Care Team Providers Care Press Operator Apprentice Name Role Phone Luna Rosenthal MD Primary Care Provider Mendy Aguilar DPM Unavailable Trey Cross MD Unavailable Encounter Details Date Type Department Care Team (Late st Contact Info) Description 07/05/2022 MyChart Message Enc [facility] Multispecialty [facility] 1188 [facility] [address] [place] [address] Luna Rosenthal MD [address] [facility] [address] [place] [address] Covid Social History Tobacco Use Types Packs/Day Years Used Date Smoking Tobacco: Never Smokeless Tobacco: Never Comments:counseled by Dr Cleo sanchez Alcohol Use Standard Drinks/Week Comments Yes 3.3 (1 standard drink = 0.6 oz p ure alcohol) PHQ-2 Answer Date Recorded Patient Health Questionnaire-2 Score 0 04/06/2022 Comments No Sex and Gender Information Value Date Recorded Sex Assigned at Female 07/02/2024 9:02 AM CDT Legal Sex Female 12:05 PM CDT Gender Identity Female 04/27/2021 1:24 PM FISH CHECKER Sexual Orientation Straight 04/27/2021 1: 24 PM FISH CHECKER documented as of this encounter Plan of Treatment Upcoming Encounters Date Type Department Care Team (Late st Contact Info) Description 05/14/2025 9:30 AM FISH CHECKER Office Visit [facility] Medical Group Multispecialty Care - [place] [address] [address] [place] [address] Luna Rosenthal MD [address] [place] [address] documented as of this encounter Visit Diagnoses Not on filedocumented in this encounter Additional Health Concerns Assessment Noted Time PHQ-9 Depression Total Score: 0 04/06/20 22 9:15 AM FISH CHECKER documented as of this encounter Care Teams Press Operator Apprentice Relationship Specialty Start Date End Date Luna Rosenthal MD [address] [place] [address] PCP - General INTERNAL MEDICINE 11/11/20 Mendy Aguilar DPM [address] [place] [address] Surgeon Heavy Mobile Equipment Operator - Foot & Ankle Surgery 04/06/22 Trey Cross MD [address] [place] [address] [address] [place] [address] ORTHOPAEDICS 05/01/24 documented as of this encounter
--- OUTSIDE RECORDS SUMMARY | 2025-04-13 07:37 | XMS_ITS | Encounter Summary ---
Author Organization [facility] Address [facility] [place] [address] Care Team Providers Care Track Repair Laborer Name Role Phone Luna Rosenthal MD Primary Care Provider Mendy Aguilar DPM Unavailable [phone] Trey Cross MD Unavailable [phone] Encounter Details Date Type Department Care Team (Latest Contact Info) Description 01/09/2023 MyChart Message Enc [facility] Medical [facility] Multispecialty [facility] 1188 [facility] [address] [place] [address] Luna Rsoenthal MD [address] [facility] [address] [place] [address] Cancel nurse visit Social History Tobacco Use Types Packs/Day Years Used Date Smoking Tobacco: Never Smokeless Tobacco: Never Comments:counseled by Dr Cleo sanchez Alcohol Use Standard Drinks/Week Comments Yes 3.3 (1 standard drink = 0.6 oz p ure alcohol) PHQ-2 Answer Date Recorded Patient Health Questionnaire-2 Score 0 11/09/2022 Comments No Sex and Gender Information Value Date Recorded Sex Assigned at Female 07/02/2024 9:02 AM CDT Legal Sex Female 12:05 PM CDT Gender Identity Female 04/27/2021 1:24 PM MANAGER BRAND Sexual Orientation Straight 04/27/2021 1: 24 PM MANAGER BRAND documented as of this encounter Plan of Treatment Upcoming Encounters Date Type Department Care Team (Late st Contact Info) Description 05/14/2025 9:30 AM MANAGER BRAND Office Visit [facility] Mult[facility]pecialty Care - [place] [address] [address] [place] [address] Luna Rosenthal MD [address] [place] [address] documented as of this encounter Visit Diagnoses Not on filedocumented in this encounter Additional Health Concerns Assessment Noted Time PHQ-9 Depression Total Score: 0 04/06/20 22 9:15 AM MANAGER BRAND documented as of this encounter Care Teams Track Repair Laborer Relationship Specialty Start Date End Date Luna Rosenthal MD [address] [place] [address] PCP - General INTERNAL MEDICINE 11/11/20 Mendy Aguilar DPM [address] [place] [address] Surgeon Night Club Manager - Foot & Ankle Surgery 04/06/22 Trey Cross MD [address] [place] [address] [address] [place] [address] ORTHOPAEDICS 05/01/24 documented as of this encounter
--- OUTSIDE RECORDS SUMMARY | 2025-04-13 07:37 | XMS_ITS | Encounter Summary ---
Author Organization [facility] - [facility] Address [facility] [place] [address] Care Team Providers Care Brand Strategy Manager Name Role Phone Luna Rosenthal MD Primary Care Provider [phone] Mendy Aguilar DPM Unavailable [phone] Trey Cross MD Unavailable Encounter Details Date Type Department Care Team (Late st Contact Info) Description 05/09/2023 Paid To Party LLCt Message Enc [facility] Medical Group Multispecialty Care - [place] 1188 [facility] [address] [place] [address] Luna Rosenthal MD 118[address] [facility] [address] [place] [address] Today Bloodwork Social History Tobacco Use Types Packs/Day Years Used Date Smoking Tobacco: Never Smokeless Tobacco: Never Comments:counseled by Dr Cleo sanchez Alcohol Use Standard Drinks/Week Comments Yes 3.3 (1 standard drink = 0.6 oz p ure alcohol) AUDIT-C Answer Date Recorded Q1: How often do you have a drink containing alc ohol? 2-3 times a week 04/12/2023 Q2: How many drinks containi ng alcohol do you have on a typical day when you are drinking? 1 or 2 04/12/2023 Q3: How often do you have si x or more drinks on one occasion? Never 04/12/2023 PHQ-2 Answer Date Recorded Patient Health Questionnaire-2 Score 0 05/03/2023 Comments No Sex and Gender Information Value Date Recorded Sex Assigned at Female 07/02/2024 9:02 AM CDT Legal Sex Female 12:05 PM CDT Gender Identity Female 04/27/2021 1:24 PM LEARNING CONSULTANT Sexual Orientation Straight 04/27/2021 1: 24 PM LEARNING CONSULTANT documented as of this encounter Plan of Treatment Upcoming Encounters Date Type Department Care Team (Late st Contact Info) Description 05/14/2025 9:30 AM LEARNING CONSULTANT Office Visit [facility] Medical [facility] Multispecialty [facility] [place] [address] [address] [place] [address] Luna Rosenthal MD [address] [place] [address] documented as of this encounter Visit Diagnoses Not on filedocumented in this encounter Additional Health Concerns Assessment Noted Time PHQ-9 Depression Total Score: 0 05/03/19 24 10:23 AM LEARNING CONSULTANT documented as of this encounter Care Teams Brand Strategy Manager Relationship Specialty Start Date End Date Luna Rosenthal MD [address] [place] [address] PCP - General INTERNAL MEDICINE 11/11/20 Mendy Aguilar DPM [address] [place] [address] Surgeon Transportation Inspector - Foot & Ankle Surgery 04/06/22 Trey Cross MD [address] [place] [address] [address] [place] [address] ORTHOPAEDICS 05/01/24 documented as of this encounter
--- OUTSIDE RECORDS SUMMARY | 2025-04-13 07:37 | XMS_ITS | Encounter Summary ---
Author Organization [facility] - [facility] Address [facility] [place] [address] Care Team Providers Care Weight Loss Consultant Name Role Phone Luna Rosenthal MD Primary Care Provider [phone] Mendy Aguilar DPM Unavailable [phone] Trey Cross MD Unavailable [phone] Encounter Details Date Type Department Care Team (Late st Contact Info) Description 03/19/2024 Kybernesist Message Enc [facility] Medical Group Multispecialty Care - [place] 1188 [facility] [address] [place] [address] Luna Rosenthal MD 118[address] [facility] 157 [place] [address] Vaccines Social History Tobacco Use Types Packs/Day Years [...] Date Recorded Patient Health Questionnaire-2 Score 0 11/14/2023 Comments No Sex and Gender Information Value Date Recorded Sex Assigned at Female 07/02/2024 9:02 AM CDT Legal Sex Female 12:05 PM CDT Gender Identity Female 04/27/2021 1:24 PM FEATURE WRITER Sexual Orientation Straight 04/27/2021 1: 24 PM FEATURE WRITER documented as of this encounter Plan of Treatment Upcoming Encounters Date Type Department Care Team (Late st Contact Info) Description 05/14/2025 9:30 AM FEATURE WRITER Office Visit [facility] Medical [facility] Multispecialty [facility] [place] [address] [address] [place] [address] Luna Rosenthal MD [address] [place] [address] documented as of this encounter Visit Diagnoses Not on filedocumented in this encounter Additional Health Concerns Assessment Noted Time PHQ-9 Depression Total Score: 0 05/03/19 24 10:23 AM FEATURE WRITER documented as of this encounter Care Teams Weight Loss Consultant Relationship Specialty Start Date End Date Luna Rosenthal MD [address] [place] [address] PCP - General INTERNAL MEDICINE 11/11/20 Mendy Aguilar DPM [address] [place] [address] Surgeon Siding Mechanic - Foot & Ankle Surgery 04/06/22 Trey Cross MD [address] [place] [address] [address] [place] [address] ORTHOPAEDICS 05/01/24 documented as of this encounter
--- OUTSIDE RECORDS SUMMARY | 2025-04-13 07:37 | XMS_ITS | Encounter Summary ---
Author Organization [facility] - [facility] Address [facility] [place] [address] Care Team Providers Care Intellectual Property Counsel Name Role Phone Luna Rosenthal MD Primary Care Provider [phone] Mendy Aguilar DPM Unavailable [phone] Trey Cross MD Unavailable Encounter Details Date Type Department Care Team (Late st Contact Info) Description 01/10/2024 Olarkt Message Enc [facility] Medical Group Multispecialty Care - [place] 1188 [facility] [address] [place] [address] Luna Rosenthal MD 118[address] [facility] 157 [place] [address] Medications Social History Tobacco Use Types Packs/Day Years [...] CDT Gender Identity Female 04/27/2021 1:24 PM COMPENSATOR Sexual Orientation Straight 04/27/2021 1: 24 PM COMPENSATOR documented as of this encounter Plan of Treatment Upcoming Encounters Date Type Department Care Team (Late st Contact Info) Description 05/14/2025 9:30 AM COMPENSATOR Office Visit [facility] Medical [facility] Multispecialty [facility] [place] [address] [address] [place] [address] Luna Rosenthal MD [address] [place] [address] documented as of this encounter Visit Diagnoses Not on filedocumented in this encounter Additional Health Concerns Assessment Noted Time PHQ-9 Depression Total Score: 0 05/03/19 24 10:23 AM COMPENSATOR documented as of this encounter Care Teams Intellectual Property Counsel Relationship Specialty Start Date End Date Luna Rosenthal MD [address] [place] [address] PCP - General INTERNAL MEDICINE 11/11/20 Mendy Aguilar DPM [address] [place] [address] Surgeon Carding Doubler - Foot & Ankle Surgery 04/06/22 Trey Cross MD [address] [place] [address] [address] [place] [address] ORTHOPAEDICS 05/01/24 documented as of this encounter
--- OUTSIDE RECORDS SUMMARY | 2025-04-13 07:37 | XMS_ITS | Patient Health Record ---
Author [facility] Address [address] [place], [place] [address] Care Team Providers Care Leather Belt Loop Cutter Name Role Phone Leni Jerez MD Primary Care Provider Unavail able ORTHO PROVIDER, [facility] Unavailable [phone] Allergies Allergen (clinical drug ingredient) Drug/Non Drug Allergy documented on EMR Reaction Allergy Type Onset Date Status Sulfa hives Drug Allergy Active penicillin hives Drug Allergy Active Reason For Referral No Information Medications Medication SIG (Take, Route, Frequency, Duration) Notes Start Date End Date Status acetaminophen-hydrocod one bitartrate 325 mg-5 mg tablet 1 tab(s) orally every 6 hours as needed for pain 05/04/2018 Active Meloxicam 7.5 mg tablet 1 tab(s) orally once a day; Duration: 30 day(s) 04/24/2018 Not-Taking/PRN Advil prn Not-Taking /PRN lisinopril 10 mg tablet 1 tab(s) orally once a day; Duration: 30 day(s) Active traMADol 50 mg tablet 1 tab(s) orally ev dangelo 4 hours Active gabapentin 300 mg capsule 2 cap(s) orally 3 times a day Active Social History Tobacco Use: Social History Observation Description Date Details (start date - stop date) Never Smoker NA - NA Social History Social History Social Info Question Answer Notes Tobacco Use: Are you a: never smoker Additional Details Category Social Info Options Details Social History Employed Retired Alcohol socially Recreational drug use No Marital status Residence with spouse Problems Problem Type SNOMED Code ICD Code Onset Dates Problem Status W/U Status Risk Notes Problem Bicipital tenosynovitis (78577843) Bicipital tendinitis, right shoulder (M75.21) Active confirmed Problem Tear of right rotator cuff (3801728668068768 3) Rotator cuff tear, right (M75.101) Active confirmed Problem Strain of muscle of right shoulder (4325822694951690 5) Muscle strain of right shoulder region, subsequent encounter (S46.101D) Active confirmed Problem Shoulder joint pain (807547779) Pain in joint of right shoulder (M25.511) Active confirmed Problem Tendonitis of right shoulder (3517780791884105 ) Subacromial tendonitis of right shoulder (M75.81) Active confirmed Plan Of Treatment No Information Insurance Providers Payer Name Payer Address Payer Phone Subscriber Number Group Number Insured Name Patient Relationship to Insured Coverage Start Date Coverage End Date Cigna [address] Karla escobar, [place] [address] [id number] Jean Garcia Self - patient is the insured Medical (General) History Medical History History ICD Code Arthritis Cancer Diverticulitis High blood pressure Neuropathy Surgical History Surgery Date(Month/Year) breast cancer 2000 Hospitalization History Reason Date(Month/Year) see surgery history
--- OUTSIDE RECORDS SUMMARY | 2025-04-13 07:37 | XMS_ITS | Encounter Summary ---
Author Organization [facility] - [facility] Address [facility] [place] [address] Care Team Providers Care Lead Tinner Name Role Phone Luna Rosenthal MD Primary Care Provider [phone] Prince Tapia MD Unavailable [phone] Mendy Aguilar DPM Unavailable [phone] Trey Cross MD Unavailable [phone] Encounter Details Date Type Department Care Team (Latest Contact Info) Description 07/02/2021 iMERt Message Enc [facility] Medical Group Multispecialty Care - [place] 1188 [facility] [address] [place] [address] Luna Rosenthal MD [address] [facility] [address] [place] [address] Letter from [facility] Social History Tobacco Use Types Packs/Day Years [...] CDT Gender Identity Female 04/27/2021 1:24 PM WAREHOUSE SHIFT SUPERVISOR Sexual Orientation Straight 04/27/2021 1: 24 PM WAREHOUSE SHIFT SUPERVISOR COVID-19 Exposure Response Date Recorded In the last 10 days, have yo u been in contact with someone who was confirmed or suspected to have Coronavirus/COVID-19? No / Unsure 06/22/2021 8:45 AM WAREHOUSE SHIFT SUPERVISOR documented as of this encounter Plan of Treatment Upcoming Encounters Date Type Department Care Team (Late st Contact Info) Description 05/14/2025 9:30 AM WAREHOUSE SHIFT SUPERVISOR Office Visit [facility] Medical Group Multispecialty Care - [place] [address] [address] [place] [address] Luna Rosenthal MD [address] [place] [address] documented as of this encounter Visit Diagnoses Not on filedocumented in this encounter Additional Health Concerns Infection Onset Date Last Indicated Resolved Time COVID-19 Rule Out 2022 2022 2022 2:22 PM WAREHOUSE SHIFT SUPERVISOR COVID-19 Rule Out 2022 2022 04/21/2022 1:49 PM WAREHOUSE SHIFT SUPERVISOR Assessment Noted Time PHQ-9 Depression Total Score: 9 06/23/19 9:17 AM WAREHOUSE SHIFT SUPERVISOR documented as of this encounter Care Teams Lead Tinner Relationship Specialty Start Date End Date Luna Rosenthal MD [address] [place] [address] PCP - General INTERNAL MEDICINE 11/11/20 Prince Tapia MD [address] [place] [address] ORTHOPAEDIC SURGERY 12/30/20 04/05/22 Mendy Aguilar DPM [address] [place] [address] Surgeon Consumer Sales Representative - Foot & Ankle Surgery 04/06/22 Trey Cross MD [address] [place] [address] [address] [place] [address] ORTHOPAEDICS 05/01/24 documented as of this encounter
--- OUTSIDE RECORDS SUMMARY | 2025-04-13 07:37 | XMS_ITS | Encounter Summary ---
Author Organization [facility] Address On license of [facility] [place] [address] Care Team Providers Care Civil Draftsman Name Role Phone Luna Rosenthal MD Primary Care Provider [phone] Mendy Aguilar DPM Unavailable Trey Cross MD Unavailable [phone] Encounter Details Date Type Department Care Team (Late Contact Info) Description 07/19/2022 MyChart Message Enc [facility] Medical [facility] Multispecialty Care - [place] 1188 [facility] [address] [place] [address] Luna Rosenthal MD [address] [facility] [address] [place] [address] Post Covid Social History Tobacco Use Types Packs/Day [...] CDT Gender Identity Female 04/27/2021 1:24 PM MILITARY PROFESSIONAL Sexual Orientation Straight 04/27/2021 1: 24 PM MILITARY PROFESSIONAL documented as of this encounter Plan of Treatment Upcoming Encounters Date Type Department Care Team (Late st Contact Info) Description 05/14/2025 9:30 AM MILITARY PROFESSIONAL Office Visit [facility] Medical Group Multispecialty Care - [place] [address] [address] [place] [address] Luna Rosenthal MD [address] [place] [address] documented as of this encounter Visit Diagnoses Not on filedocumented in this encounter Additional Health Concerns Assessment Noted Time PHQ-9 Depression Total Score: 0 04/06/20 22 9:15 AM MILITARY PROFESSIONAL documented as of this encounter Care Teams Civil Draftsman Relationship Specialty Start Date End Date Luna Rosenthal MD [address] [place] [address] PCP - General INTERNAL MEDICINE 11/11/20 Mendy Aguilar DPM [address] [place] [address] Surgeon Mixer Diamond Powder - Foot & Ankle Surgery 04/06/22 Trey Cross MD [address] [place] [address] [address] [place] [address] ORTHOPAEDICS 05/01/24 documented as of this encounter
--- OUTSIDE RECORDS SUMMARY | 2025-04-13 07:37 | XMS_ITS | Encounter Summary ---
Author Organization [facility] - [facility] Address [facility] [place] [address] Care Team Providers Care Care Asst Name Role Phone Luna Rosenthal MD Primary Care Provider [phone] Prince Tapia MD Unavailable [phone] Mendy Aguilar DPM Unavailable [phone] Trey Cross MD Unavailable [phone] Encounter Details Date Type Department Care Team (Late st Contact Info) Description 06/21/2021 MyChart Message Enc [facility] Medical Group Multispecialty Care - [place] [address] [place] [address] [address] [place] [address] Luna Rosenthal MD [address] [facility] [address] [place] [address] Sertraline Social History Tobacco Use [...] CDT Gender Identity Female 04/27/2021 1:24 PM TRAM DRIVER Sexual Orientation Straight 04/27/2021 1: 24 PM TRAM DRIVER COVID-19 Exposure Response Date Recorded In the last 10 days, have yo u been in contact with someone who was confirmed or suspected to have Coronavirus/COVID-19? No / Unsure 06/22/2021 8:45 AM TRAM DRIVER documented as of this encounter Plan of Treatment Upcoming Encounters Date Type Department Care Team (Late st Contact Info) Description 05/14/2025 9:30 AM TRAM DRIVER Office Visit [facility] Medical Group Multispecialty Care - [place] [address] [address] [place] [address] Luna Rosenthal MD [address] [place] [address] documented as of this encounter Visit Diagnoses Not on filedocumented in this encounter Additional Health Concerns Infection Onset Date Last Indicated Resolved Time COVID-19 Rule Out 2022 2022 2022 2:22 PM TRAM DRIVER COVID-19 Rule Out 2022 2022 04/21/2022 1:49 PM TRAM DRIVER Assessment Noted Time PHQ-9 Depression Total Score: 1 05/10/19 9:36 AM TRAM DRIVER documented as of this encounter Care Teams Care Asst Relationship Specialty Start Date End Date Luna Rosenthal MD [address] [place] [address] PCP - General INTERNAL MEDICINE 11/11/20 Prince Tapia MD [address] [place] [address] ORTHOPAEDIC SURGERY 12/30/20 04/05/22 Mendy Aguilar DPM [address] [place] [address] Surgeon Machine Hostler - Foot & Ankle Surgery 04/06/22 Trey Cross MD [address] [place] [address] [address] [place] [address] ORTHOPAEDICS 05/01/24 documented as of this encounter
--- OUTSIDE RECORDS SUMMARY | 2025-04-13 07:37 | XMS_ITS | Encounter Summary ---
Author Organization [facility] - [facility] Address [facility] [place] [address] Care Team Providers Care Clinical Trials Nurse Name Role Phone Luna Rosenthal MD Primary Care Provider Mendy Aguilar DPM Unavailable [phone] Trey Cross MD Unavailable [phone] Encounter Details Date Type Department Care Team (Late st Contact Info) Description 06/24/2022 MyChart Message Enc [facility] Multispecialty [facility] 1188 [facility] [address] [place] [address] Luna Rosenthla MD [address] [facility] [address] [place] [address] Medications Social History Tobacco Use [...] CDT Gender Identity Female 04/27/2021 1:24 PM RN CHARGE Sexual Orientation Straight 04/27/2021 1: 24 PM RN CHARGE documented as of this encounter Plan of Treatment Upcoming Encounters Date Type Department Care Team (Late st Contact Info) Description 05/14/2025 9:30 AM RN CHARGE Office Visit [facility] Multispecialty Care - [place] [address] [address] [place] [address] Luna Rosenthal MD [address] [place] [address] documented as of this encounter Visit Diagnoses Not on filedocumented in this encounter Additional Health Concerns Assessment Noted Time PHQ-9 Depression Total Score: 0 04/06/20 9:15 AM RN CHARGE documented as of this encounter Care Teams Clinical Trials Nurse Relationship Specialty Start Date End Date Luna Rosenthal MD [address] [place] [address] PCP - General INTERNAL MEDICINE 11/11/20 Mendy Aguilar DPM [address] [place] [address] Surgeon Underlay Stitcher - Foot & Ankle Surgery 04/06/22 Trey Cross MD [address] [place] [address] [address] [place] [address] ORTHOPAEDICS 05/01/24 documented as of this encounter
--- OUTSIDE RECORDS SUMMARY | 2025-04-13 07:37 | XMS_ITS | Encounter Summary ---
Author Organization [facility] - [facility] Address [facility] [place] [address] Care Team Providers Care Billing Adjudicator Name Role Phone Luna Rosenthal MD Primary Care Provider [phone] Mendy Aguilar DPM Unavailable [phone] Trey Cross MD Unavailable [phone] Encounter Details Date Type Department Care Team (Late Contact Info) Description 04/08/2022 Ogorod Message Enc [facility] Medical Group Multispecialty Care - [place] [address] [facility] [address] [place], [place] [address] [employer], [facility] Provider surgery clearance Social History Tobacco Use Types Packs/Day Years [...] CDT Gender Identity Female 04/27/2021 1:24 PM ANIMAL HUSBANDMAN Sexual Orientation Straight 04/27/2021 1: 24 PM ANIMAL HUSBANDMAN COVID-19 Exposure Response Date Recorded In the last 10 days, have yo u been in contact with someone who was confirmed or suspected to have Coronavirus/COVID-19? No / Unsure 04/06/2022 8:45 AM ANIMAL HUSBANDMAN documented as of this encounter Plan of Treatment Upcoming Encounters Date Type Department Care Team (Late Contact Info) Description 05/14/2025 9:30 AM ANIMAL HUSBANDMAN Office Visit [facility] Medical Group Multispecialty Care - [place] [address] [address] [place] [address] Luna Rosenthal MD [address] [place] [address] documented as of this encounter Visit Diagnoses Not on filedocumented in this encounter Additional Health Concerns Infection Onset Date Last Indicated Resolved Time COVID-19 Rule Out 2022 2022 2022 2:22 PM ANIMAL HUSBANDMAN COVID-19 Rule Out 2022 2022 04/21/2022 1:49 PM ANIMAL HUSBANDMAN Assessment Noted Time PHQ-9 Depression Total Score: 0 04/06/20 9:15 AM ANIMAL HUSBANDMAN documented as of this encounter Care Teams Billing Adjudicator Relationship Specialty Start Date End Date Luna Rosenthal MD [address] [place] [address] PCP - General INTERNAL MEDICINE 11/11/20 Mendy Aguilar DPM [address] [place] [address] Surgeon Investment Banker - Foot & Ankle Surgery 04/06/22 Trey Cross MD [address] [place] [address] [address] [place] [address] ORTHOPAEDICS 05/01/24 documented as of this encounter
--- OUTSIDE RECORDS SUMMARY | 2025-04-13 07:37 | XMS_ITS | Encounter Summary ---
Author Organization [facility] - [facility] System Address [address] [place] [address] Care Team Providers Care Departmental Secretary Name Role Phone Luna Rosenthal MD Primary Care Provider Mendy Aguilar DPM Unavailable [phone] Trey Cross MD Unavailable [phone] Encounter Details Date Type Department Care Team (Late st Contact Info) Description 05/10/2023 Netaplan Message Enc [facility] Medical Group Multispecialty Care - [place] [address] [facility] [address] [place] [address] HOST[facility], [facility] Provider Nurse visit appt Social History Tobacco Use Types Packs/Day Years [...] CDT Gender Identity Female 04/27/2021 1:24 PM CERTIFICATION OFFICER Sexual Orientation Straight 04/27/2021 1: 24 PM CERTIFICATION OFFICER documented as of this encounter Plan of Treatment Upcoming Encounters Date Type Department Care Team (Late st Contact Info) Description 05/14/2025 9:30 AM CERTIFICATION OFFICER Office Visit [facility] Medical Group Multispecialty Care - [place] [address] [address] [place] [address] Luna Rosenthal MD [address] [place] [address] documented as of this encounter Visit Diagnoses Not on filedocumented in this encounter Additional Health Concerns Assessment Noted Time PHQ-9 Depression Total Score: 0 05/03/19 24 10:23 AM CERTIFICATION OFFICER documented as of this encounter Care Teams Departmental Secretary Relationship Specialty Start Date End Date Luna Rosenthal MD [address] [place] [address] PCP - General INTERNAL MEDICINE 11/11/20 Mendy Aguilar DPM [address] [place] [address] Surgeon Ur Coordinator - Foot & Ankle Surgery 04/06/22 Trey Cross MD [address] [place] [address] [address] [place] [address] ORTHOPAEDICS 05/01/24 documented as of this encounter
--- OUTSIDE RECORDS SUMMARY | 2025-04-13 07:37 | XMS_ITS | Encounter Summary ---
Author Organization [facility] - [facility] Address [facility] [place] [address] Care Team Providers Care Ferryboat Deckhand Name Role Phone Luna Rosenthal MD Primary Care Provider [phone] Mendy Aguilar DPM Unavailable [phone] Trey Cross MD Unavailable [phone] Encounter Details Date Type Department Care Team (Late st Contact Info) Description 01/04/2024 LED Opticst Message Enc [facility] Medical [facility] Multispecialty Care - [place] [address] [facility] [address] [place] [address] Luna Rosenthal MD [address] [facility] [address] [place] [address] Chest X-ray Social History Tobacco Use Types Packs/Day Years [...] CDT Gender Identity Female 04/27/2021 1:24 PM PBX MANAGER Sexual Orientation Straight 04/27/2021 1: 24 PM PBX MANAGER documented as of this encounter Plan of Treatment Upcoming Encounters Date Type Department Care Team (Late st Contact Info) Description 05/14/2025 9:30 AM PBX MANAGER Office Visit [facility] Medical [facility] Multispecialty [facility] - [place] [address] [address] [place] [address] Luna Rosenthal MD [address] [place] [address] documented as of this encounter Visit Diagnoses Not on filedocumented in this encounter Additional Health Concerns Assessment Noted Time PHQ-9 Depression Total Score: 0 05/03/19 24 10:23 AM PBX MANAGER documented as of this encounter Care Teams Ferryboat Deckhand Relationship Specialty Start Date End Date Luna Rosenthal MD [address] [place] [address] PCP - General INTERNAL MEDICINE 11/11/20 Mendy Aguilar DPM [address] [place] [address] Surgeon Security Officers And Guards - Foot & Ankle Surgery 04/06/22 Trey Cross MD [address] [place] [address] [address] [place] [address] ORTHOPAEDICS 05/01/24 documented as of this encounter
--- OUTSIDE RECORDS SUMMARY | 2025-04-13 07:37 | XMS_ITS | Encounter Summary ---
Author Organization [facility] - [facility] Address [facility] [place] [address] Care Team Providers Care Silk Hanger Name Role Phone Luna Rosenthal MD Primary Care Provider [phone] Mendy Aguilar DPM Unavailable Trey Cross MD Unavailable [phone] Encounter Details Date Type Department Care Team (Late st Contact Info) Description 2022 Whimt Message Enc [facility] Medical Group Multispecialty Care - [place] [address] [facility] [address] [place] [address] Luna Rosenthal MD [address] [facility] [address] [place] [address] Head cold Social History Tobacco Use Types Packs/Day Years [...] CDT Gender Identity Female 04/27/2021 1:24 PM TEST WORKER Sexual Orientation Straight 04/27/2021 1: 24 PM TEST WORKER COVID-19 Exposure Response Date Recorded In the last 10 days, have yo u been in contact with someone who was confirmed or suspected to have Coronavirus/COVID-19? No / Unsure 2022 1:28 PM TEST WORKER documented as of this encounter Plan of Treatment Upcoming Encounters Date Type Department Care Team (Late st Contact Info) Description 05/14/2025 9:30 AM TEST WORKER Office Visit [facility] Medical Group Multispecialty Care - [place] [address] [address] [place] [address] Luna Rosenthal MD [address] [place] [address] documented as of this encounter Visit Diagnoses Not on filedocumented in this encounter Additional Health Concerns Infection Onset Date Last Indicated Resolved Time COVID-19 Rule Out 2022 2022 2022 2:22 PM TEST WORKER COVID-19 Rule Out 2022 2022 04/21/2022 1:49 PM TEST WORKER Assessment Noted Time PHQ-9 Depression Total Score: 0 04/06/20 9:15 AM TEST WORKER documented as of this encounter Care Teams Silk Hanger Relationship Specialty Start Date End Date Luna Rosenthal MD [address] [place] [address] PCP - General INTERNAL MEDICINE 11/11/20 Mendy Aguilar DPM [address] [place] [address] Surgeon Customs Agent - Foot & Ankle Surgery 04/06/22 Trey Cross MD [address] [place] [address] [address] [place] [address] ORTHOPAEDICS 05/01/24 documented as of this encounter
--- OUTSIDE RECORDS SUMMARY | 2025-04-13 07:37 | XMS_ITS | Clinical Summary ---
Author Organization [facility] [place] [address] [place] Address [address] [place] [address] Care Team Providers Care Leaf Sucker Operator Name Role Phone Luna Rosenthal MD Primary Care Provider [phone] Óscar Ryan OT Unavailable Unavailable Dexter Baum Unavailable Allergies Active Allergy Reactions Criticality Noted Date Comments Penicillin V Rash Medium 08/23/2023 Penicillins Hives,Rash Medium 08/04/2015 Can't remember severity Sulfa (Sulfonamide Antibiotics) Rash High 09/15/2016 Medications lisinopriL (PRINIVIL,ZESTRIL ) 10 mg tablet Take 1 tablet (10 mg total) by mouth daily 3 Active atorvastatin (LIPITOR) 20 mg tablet Take 1 tablet (20 mg total) by mouth daily 3 Active ALPRAZolam (XANAX) 0.25 mg tablet Take 1 tablet (0.25 mg total) by mouth nightly as needed 3 Active mv-min/iron/folic /calcium/vitK (WOMEN'S MULTIVITAMIN ORAL) Take by mouth daily Active gabapentin (NEURONTIN) 300 mg capsule Take 1 capsule (300 mg total) by mouth 2 (two) times a day 1 capsule in the AM and 2 capsules in the PM. Active sertraline (ZOLOFT) 25 mg tablet Take 1 tablet (25 mg total) by mouth daily 5 Active clindamycin (CLEOCIN) 300 mg capsule Take 2 tablets by mouth 1 hour prior to procedure and 1 tablet by mouth 6 hours after the procedure. 3 capsule 1 Active Active Problems Problem Noted Date Diagnosed Date Post-traumatic osteoarthritis of left knee 01/01 Genu valgum, acquired, left 01/02/2024 Mixed stress and urge urinary incontinence 12/24 Vaginal atrophy 12/25/2023 Pelvic floor dysfunction in female 12/25/2023 History of breast cancer 12/25/2023 Encounters Date Type Department Care Team Description 01/23/2025 Orders Only [facility] Medical Group Orthopedics and Sports Medicine [address] [place] [address] [address], [place] [address] Trey Cross MD from Last 3 Months Surgical History Surgery Date Site/Laterality Comments BREAST LUMPECTOMY 04/17/2000 - 04/16/2001 Right TUBAL LIGATION 04/17/1988 - 04/16/1989 Bilateral FOOT SURGERY x 3 Medical History Medical History Date Comments Hypertension Hypercholesteremia Peripheral neuropathy Breast cancer 2000 s/p lumpectomy, XRT, tamoxifen, right breast Osteoarthritis Family History Medical History Relation Name Comments Arthritis Other Heart disease Other Hypertension Other Pulmonary embolism Sister Relation Name Status Comments Other Sister Social History Tobacco Use Types Packs/Day Years Used Date Smoking Tobacco: Never Smokeless Tobacco: Never Tobacco Cessation:Counseling Given: Not Answered AUDIT-C Answer Date Recorded Q1: How often do you have a drink containing alc ohol? Monthly or less 09/16/2024 Q2: How many drinks containi ng alcohol do you have on a typical day when you are drinking? 1 or 2 09/16/2024 Q3: How often do you have si x or more drinks on one occasion? Never 09/16/2024 Personal Safety Answer Date Recorded Have you ever been in or are you currently in a harmful physical or emotional relationship or is someone making you feel afraid or unsafe? Denies 07/18/2024 Comments No Sex and Gender Information Value Date Recorded Sex Assigned at Not on file Legal Sex Female 11:16 AM CDT Gender Identity Not on file Sexual Orientation Not on file Obstetrics History Para Term AB IAB SAB Ectopic Multiple Livin g Live Births 3 2 2 1 2 2 Date Outcome GA Total Labor Labor/2nd/3rd Weight Sex Type Anes PTL Xochilt A1 A5 Name Clin Term Vaginal Living Term Vaginal Living AB Last Filed Vital Signs Vital Sign Reading Time Taken Comments Blood Pressure 120/66 09/16/2024 9:52 AM CDT Pulse 71 09/16/2024 9:52 AM CDT Temperature 36.4 C (97.6 F) 07/18/2024 3:40 PM CDT Respiratory Rate 16 07/18/2024 3:40 PM CDT Oxygen Saturation 97% 07/18/2024 3:40 PM CDT Inhaled Oxygen Concentration - - Weight 59 kg (130 lb) 09/16/2024 9:52 AM CDT Height 157.5 cm (5' 2) 09/16/2024 9:52 AM CDT Body Mass Index 23.78 09/16/2024 9:52 AM CDT Plan of Treatment Health Maintenance Due Date Last Done Comments Colon Cancer Screening-Colonoscopy 1955 Depression Screening 1955 Hepatitis C Screening 1953 Hepatitis B Screening 1971 Zoster Vaccine (2 of 3) 06/12/2014 04/17/2014 Well Visit 65+ 2018 Breast Cancer Screening-Mammogram 05/31/2020 05/31/2019, 05/31/2019, 04/23/2018, Additional history exists Osteoporosis Screening-Bone Density Scan 05/31/2021 05/31/2019 Covid-19 Vaccine ( - 2024-2 6 season) 2024 03/16/2021, 07/13/2020, 06/15/2020 Influenza Vaccine (#1) 2024 , 02/11/2021, 01/29/2020, Additional history exists Fall Risk Assessment 07/02/2025 07/02/2024 DTaP/Tdap/Td Vaccine (3 - Td or Tdap) 05/10/2031 05/10/2021, 04/17/2011 Pneumococcal vaccine 65+ Completed 03/26/2020, 12/16 Medical Devices Implanted Type Area Hand Stoner Device Identifier Shelf Expiration Date Model / Serial / Lot [employer] Attune Cruciate Retain Cementless Knee Left 4 Component Femoral [id number] - [id number] Implanted:Qty: 1 on 07/18/2024 at [facility] [employer] 10/15/2031 [id number] / / [employer] Insert Tibial Knee Fixed Lm Posterior Stabilized Attune 8mm Size 4 Polyethylene [id number] - [id number] Implanted:Qty: 1 on 07/18/2024 by Trey Cross MD at [facility] [employer] 03/16/2031 [id number] / / [employer] Attune Fb Tib Base Sz 4 Por [id number] - [id number] Implanted:Qty: 1 on 07/18/2024 by Trey Cross MD at [facility] [employer] 01/14/2033 [id number] / / Insurance [facility] Advance Directives For more information, please contact: [phone] Documents on File Type Date Recorded Patient Health Safety Engineer Expl anation Advance Directives and Livin g Will 07/18/2024 5:51 AM Power of Well Drill Operator 07/18/2024 5:51 AM * Full Code (Latest Code Status on File) Date Activated Date Inactivated Comments 07/18/2024 11:23 AM 07/18/2024 7:52 PM Care Teams Leaf Sucker Operator Relationship Specialty Start Date End Date Luna Rosenthal MD [address] [place] [address] PCP - General Internal Medicine 01/06/23 Óscar Ryan OT Occupational Therapist Occupational Therapy 07/02/24 eDxter Baum PA [address] [place] [address] DR SANCHEZ [address] [place] [address] Physician Skip Operator Orthopedic Surgery 07/18/24
--- OUTSIDE RECORDS SUMMARY | 2025-04-13 07:37 | XMS_ITS | Encounter Summary ---
Author Organization [facility] - [facility] Address [facility] [place] [address] Care Team Providers Care Record Clerk Salesperson Name Role Phone Luna Rosenthal MD Primary Care Provider Mendy Aguilar DPM Unavailable [phone] Trey Cross MD Unavailable Encounter Details Date Type Department Care Team (Late st Contact Info) Description 09/27/2022 MyChart Message Enc [facility] Multispecialty [facility] [place] [address] [facility] [address] [place] [address] Luna Rosenthal MD [address] [facility] [address] [place] [address] Surgery Social History Tobacco Use Types Packs/Day Years [...] CDT Gender Identity Female 04/27/2021 1:24 PM BRICK PAVER Sexual Orientation Straight 04/27/2021 1: 24 PM BRICK PAVER documented as of this encounter Plan of Treatment Upcoming Encounters Date Type Department Care Team (Late st Contact Info) Description 05/14/2025 9:30 AM BRICK PAVER Office Visit [facility] Mult[facility] Care - [place] [address] [address] [place] [address] Luna Rosenthal MD [address] [place] [address] documented as of this encounter Visit Diagnoses Not on filedocumented in this encounter Additional Health Concerns Assessment Noted Time PHQ-9 Depression Total Score: 0 04/06/20 9:15 AM BRICK PAVER documented as of this encounter Care Teams Record Clerk Salesperson Relationship Specialty Start Date End Date Luna Rosenthal MD [address] [place] [address] PCP - General INTERNAL MEDICINE 11/11/20 Mendy Aguilar DPM [address] [place] [address] Surgeon Press Pipe Inspector - Foot & Ankle Surgery 04/06/22 Trey Cross MD [address] [place] [address] [address] [place] [address] ORTHOPAEDICS 05/01/24 documented as of this encounter
--- OUTSIDE RECORDS SUMMARY | 2025-04-13 07:37 | XMS_ITS | Encounter Summary ---
Author Organization [facility] - [facility] Address [facility] [place] [address] Care Team Providers Care Paint Roller Cover Machine Setter Name Role Phone Luna Rosenthal MD Primary Care Provider Prince Tapia MD Unavailable [phone] Mendy Aguilar DPM Unavailable [phone] Trey Cross MD Unavailable [phone] Encounter Details Date Type Department Care Team (Late st Contact Info) Description 03/17/2022 Cupplehart Message Enc [facility] Medical Group Multispecialty Care - [place] [address] [place] [address] [address] [place] [address] Luna Rosenthal MD [address] [facility] [address] [place] [address] mammogram Social History Tobacco Use Types Packs/Day Years [...] CDT Gender Identity Female 04/27/2021 1:24 PM OIL WELL ENGINEER Sexual Orientation Straight 04/27/2021 1: 24 PM OIL WELL ENGINEER documented as of this encounter Plan of Treatment Upcoming Encounters Date Type Department Care Team (Late st Contact Info) Description 05/14/2025 9:30 AM OIL WELL ENGINEER Office Visit [facility] Medical Group Multispecialty Care - [place] [address] [address] [place] [address] Luna Rosenthal MD [address] [place] [address] documented as of this encounter Visit Diagnoses Not on filedocumented in this encounter Additional Health Concerns Infection Onset Date Last Indicated Resolved Time COVID-19 Rule Out 2022 2022 2022 2:22 PM OIL WELL ENGINEER COVID-19 Rule Out 2022 2022 04/21/2022 1:49 PM OIL WELL ENGINEER Assessment Noted Time PHQ-9 Depression Total Score: 9 06/23/19 9:17 AM OIL WELL ENGINEER documented as of this encounter Care Teams Paint Roller Cover Machine Setter Relationship Specialty Start Date End Date Luna Rosenthal MD [address] [place] [address] PCP - General INTERNAL MEDICINE 11/11/20 Prince Tapia MD [address] [place] [address] ORTHOPAEDIC SURGERY 12/30/20 04/05/22 Mendy Aguilar DPM [address] [place] [address] Surgeon Environmental Service Aide - Foot & Ankle Surgery 04/06/22 Trey Cross MD [address] [place] [address] [address] [place] [address] ORTHOPAEDICS 05/01/24 documented as of this encounter
--- OUTSIDE RECORDS SUMMARY | 2025-04-13 07:37 | XMS_ITS | Encounter Summary ---
Author Organization [facility] - [facility] Address [address] [place] [address] Care Team Providers Care Ironer Or Presser Name Role Phone Luna Rosenthal MD Primary Care Provider [phone] Mendy Aguilar DPM Unavailable [phone] Trey Cross MD Unavailable [phone] Encounter Details Date Type Department Care Team (Late st Contact Info) Description 05/11/2023 Odeeo Message Enc [facility] Medical Group Multispecialty Care - [place] [address] [facility] [address] [place] [address] [address], [facility] Provider Nurse visit Social History Tobacco Use Types Packs/Day [...] Gender Identity Female 04/27/2021 1:24 PM MANAGER ASSESSMENT Sexual Orientation Straight 04/27/2021 1: 24 PM MANAGER ASSESSMENT documented as of this encounter Plan of Treatment Upcoming Encounters Date Type Department Care Team (Late st Contact Info) Description 05/14/2025 9:30 AM MANAGER ASSESSMENT Office Visit [facility] Medical Group Multispecialty Care - [place] [address] [address] [place] [address] Luna Rosenthal MD [address] [place] [address] documented as of this encounter Visit Diagnoses Not on filedocumented in this encounter Additional Health Concerns Assessment Noted Time PHQ-9 Depression Total Score: 0 05/03/19 24 10:23 AM MANAGER ASSESSMENT documented as of this encounter Care Teams Ironer Or Presser Relationship Specialty Start Date End Date Luna Rosenthal MD [address] [place] [address] PCP - General INTERNAL MEDICINE 11/11/20 Mendy Aguilar DPM [address] [place] [address] Surgeon Master Craftsman - Foot & Ankle Surgery 04/06/22 Trey Cross MD [address] [place] [address] [address] [place] [address] ORTHOPAEDICS 05/01/24 documented as of this encounter
--- OUTSIDE RECORDS SUMMARY | 2025-04-13 07:37 | XMS_ITS | Encounter Summary ---
Author Organization [facility] Address [facility] [place] [address] Care Team Providers Care Senior Physical Therapist Name Role Phone Luna Rosenthal MD Primary Care Provider [phone] Mendy Aguilar DPM Unavailable [phone] Trey Cross MD Unavailable [phone] Encounter Details Date Type Department Care Team (Late st Contact Info) Description 04/08/2022 Intuitive Solutionst Message Enc [facility] Medical Group Multispecialty Care - [place] [address] [facility] [address] [place] [address] Luna Rosenthal MD [address] [facility] [address] [place] [address] EKG test Social History Tobacco Use Types Packs/Day Years [...] CDT Gender Identity Female 04/27/2021 1:24 PM MOLD YARD SUPERVISOR Sexual Orientation Straight 04/27/2021 1: 24 PM MOLD YARD SUPERVISOR COVID-19 Exposure Response Date Recorded In the last 10 days, have yo u been in contact with someone who was confirmed or suspected to have Coronavirus/COVID-19? No / Unsure 04/06/2022 8:45 AM MOLD YARD SUPERVISOR documented as of this encounter Plan of Treatment Upcoming Encounters Date Type Department Care Team (Late st Contact Info) Description 05/14/2025 9:30 AM MOLD YARD SUPERVISOR Office Visit [facility] Group Multispecialty Care - [place] [address] [address] [place] [address] Luna Rosenthal MD [address] [place] [address] documented as of this encounter Visit Diagnoses Not on filedocumented in this encounter Additional Health Concerns Infection Onset Date Last Indicated Resolved Time COVID-19 Rule Out 2022 2022 2022 2:22 PM MOLD YARD SUPERVISOR COVID-19 Rule Out 2022 2022 04/21/2022 1:49 PM MOLD YARD SUPERVISOR Assessment Noted Time PHQ-9 Depression Total Score: 0 04/06/20 9:15 AM MOLD YARD SUPERVISOR documented as of this encounter Care Teams Senior Physical Therapist Relationship Specialty Start Date End Date Luna Rosenthal MD [address] [place] [address] PCP - General INTERNAL MEDICINE 11/11/20 Mendy Aguilar DPM [address] [place] [address] Surgeon Automotive Service Advisor - Foot & Ankle Surgery 04/06/22 Trey Cross MD [address] [place] [address] [address] [place] [address] ORTHOPAEDICS 05/01/24 documented as of this encounter
--- OUTSIDE RECORDS SUMMARY | 2025-04-13 07:37 | XMS_ITS | Encounter Summary ---
Author Organization [facility] Address [facility] [place] [address] Care Team Providers Care Fill Plant Operator Name Role Phone Luna Rosenthal MD Primary Care Provider [phone] Prince Tapia MD Unavailable [phone] Mendy Aguilar DPM Unavailable [phone] Trey Cross MD Unavailable [phone] Encounter Details Date Type Department Care Team (Late st Contact Info) Description 04/04/2022 MyChart Message Enc [facility] - [place] [address] [facility] [address] [place] [address] Luna Rosenthal MD [address] [facility] [address] [place] [address] Travel meds Social History Tobacco Use Types Packs/Day Years Used Date Smoking Tobacco: Never Cigarettes Smokeless Tobacco: Never Comments:counseled by Dr Cleo sanchez Alcohol Use Standard Drinks/Week Comments Yes 3.3 (1 standard drink = 0.6 oz p ure alcohol) a few glasses of wine a week PHQ-2 Answer Date Recorded Patient Health Questionnaire-2 Score 0 04/06/2022 Comments No Sex and Gender Information Value Date Recorded Sex Assigned at Female 07/02/2024 9:02 AM CDT Legal Sex Female 12:05 PM CDT Gender Identity Female 04/27/2021 1:24 PM TYPE COPYIST Sexual Orientation Straight 04/27/2021 1: 24 PM TYPE COPYIST COVID-19 Exposure Response Date Recorded In the last 10 days, have yo u been in contact with someone who was confirmed or suspected to have Coronavirus/COVID-19? No / Unsure 04/06/2022 8:45 AM TYPE COPYIST documented as of this encounter Plan of Treatment Upcoming Encounters Date Type Department Care Team (Late st Contact Info) Description 05/14/2025 9:30 AM TYPE COPYIST Office Visit [facility] [place] [address] [address] [place] [address] Luna Rosenthal MD [address] [place] [id number] documented as of this encounter Visit Diagnoses Not on filedocumented in this encounter Additional Health Concerns Infection Onset Date Last Indicated Resolved Time COVID-19 Rule Out 2022 2022 2022 2:22 PM TYPE COPYIST COVID-19 Rule Out 2022 2022 04/21/2022 1:49 PM TYPE COPYIST Assessment Noted Time PHQ-9 Depression Total Score: 9 06/23/19 22 9:17 AM TYPE COPYIST documented as of this encounter Care Teams Fill Plant Operator Relationship Specialty Start Date End Date Luna Rosenthal MD [address] [place] [id number] PCP - General INTERNAL MEDICINE 11/11/20 Prince Tapia MD [address] [place] [id number] ORTHOPAEDIC SURGERY 12/30/20 04/05/22 Mendy Aguilar DPM [address] [place] [id number] Surgeon Pipe Covering Molder - Foot & Ankle Surgery 04/06/22 Trey Cross MD [address] [place] [address] [address] [place] [address] ORTHOPAEDICS 05/01/24 documented as of this encounter
[2025-04-13] MEDS: oxyCODONE/ACETAMINOPHEN (*CRX) 5-325 MG TABLET 1 TABLET PO (08:47)
[2025-04-13 08:50] VITALS: BP 131/97; PULSE 78; RESP 15; O2SAT 96
== END 2025-04-13 09:09 | disposition home or self-care (01) ==
PROVIDERS: Emergency Provider Emergency Medicine; PCP Internal Medicine
DX: S82.62XA Displaced fracture of lateral malleolus of left fibula, initial encounter for closed fracture (principal); W10.9XXA Fall (on) (from) unspecified stairs and steps, initial encounter
CPT/HCPCS: 29515; 73610; 99284; A9270